=== PATIENT | female | born 1965 | race Two or more races ===

== ENCOUNTER 2021-11-26 13:14 | Inpatient (IN) | payer MEDICAID, OTHER ==
[~2021-11-26] VITALS: Ht 160 cm; Wt 118.0 kg
[2021-11-26] MEDS ORDERED: HYDROcodone-ACET 5/325MG TAB PO ONE (13:45)
[2021-11-26 14:14] LABS: Basophils # (auto) 0.1 10 ^3/uL (0-0.2); Basophils % (auto) 0.7 % (0.0-2.0); Eosinophils # (auto) 0.2 10 ^3/uL (0-0.8); Eosinophils % (auto) 2.7 % (0.0-7.0); Hematocrit 45.4 % (36.0-46.0); Hemoglobin 15.9 g/dL (12.2-16.2); Lymphocytes # (auto) 1.5 10 ^3/uL (0.4-5.4); Lymphocytes % (auto) 17.5 % (10.0-50.0); Mean Corpuscular Hemoglobin 29.6 pg (28.0-32.0); Mean Corpuscular Volume 84.6 fL (80.0-100.0); Monocytes # (auto) 0.6 10 ^3/uL (0-1.3); Monocytes % (auto) 6.7 % (0.0-12.0); Neutrophils # (auto) 6.1 10 ^3/uL (1.6-8.6); Neutrophils % (auto) 72.4 % (37.0-80.0); Nucleated Red Blood Cells % 0.1 %; Red Blood Cells 5.37 10^6/uL (4.0-5.20); Red Cell Distribution Width 12.3 % (11.8-14.3); White Blood Cell 8.5 10^3/uL (4.4-10.8)
[2021-11-26 14:32] LABS: INR 1.01 (0.9-1.15); Partial Thromboplastin Time 22.8 sec (23.6-33.0)
[2021-11-26 14:33] LABS: Alanine Aminotransferase 40 U/L (13-56); Albumin 3.2 g/dL (3.4-5.0); Anion Gap 7 (5-15); Aspartate Aminotransferase 33 U/L (15-37); BUN/Creatinine Ratio 21.7; Blood Urea Nitrogen 15 mg/dL (7-18); Calcium 9.1 mg/dL (8.5-10.1); Carbon Dioxide 25 mmol/L (21-32); Chloride 103 mmol/L (98-107); GFR African American 114 mL/min; GFR Non-African American 94 mL/min; Glucose 246 mg/dL (74-106); Magnesium 2.4 mg/dL (1.6-2.6); Potassium 4.4 mmol/L (3.5-5.1); Sodium 135 mmol/L (136-145)
[2021-11-26 14:38] LABS: Alkaline Phosphatase 88 U/L (45-117); Bilirubin, Total 0.4 mg/dL (0.2-1.0); Total Protein 7.4 g/dL (6.4-8.2)
[2021-11-26] MEDS ORDERED: MECLIZINE HCL 25 MG TAB PO ONE (17:15)
[2021-11-26] MEDS ORDERED: hydrALAZINE HCL 20 MG/ML VL IV PRN (19:15)
[2021-11-26] MEDS ORDERED: ONDANSETRON HCL 4 MG/2 ML VIAL IV PRN (19:15)
[2021-11-26] MEDS ORDERED: DIPHENOXYLATE W/ATROPINE 2.5 MG TAB PO PRN (19:15)
[2021-11-26] MEDS ORDERED: DEXTROSE (50%) 50ML SYRG IV PRN (19:15)
[2021-11-26] MEDS ORDERED: ACETAMINOPHEN 500 MG TAB PO PRN (19:15)
[2021-11-26] MEDS ORDERED: MORPHINE SULFATE INJECTION 2 MG/ML SYRG IV PRN ×2 (19:15)
[2021-11-26] MEDS ORDERED: SODIUM CHLORIDE 0.9% 1,000 ML IV ONE (19:15)
[2021-11-26] MEDS ORDERED: MECLIZINE HCL 25 MG TAB PO PRN (19:15)
[2021-11-26] MEDS ORDERED: NITROGLYCERIN 0.4 MG SL TAB SL PRN (19:15)
[2021-11-26] MEDS: ACCU-CHEK COMFORT CURVE STRIP VI SCH (20:10)
[2021-11-26] MEDS: InsuLIN REG 1unit/0.01ml Soln (100units/ml) SC SCH (20:10)
[2021-11-26] MEDS: SODIUM CHLORIDE 0.9% 1,000 ML IV SCH (22:07)
[2021-11-26 22:28] VITALS: BP 111/60
[2021-11-26 22:48] VITALS: BP 111/60
[2021-11-27] MEDS: ACCU-CHEK COMFORT CURVE STRIP VI SCH ×7 (00:02→23:20)
[2021-11-27] MEDS: InsuLIN REG 1unit/0.01ml Soln (100units/ml) SC SCH ×7 (00:07→23:22)
[2021-11-27 05:00] VITALS: BP 107/65
[2021-11-27 06:05] LABS: Albumin 2.6 g/dL (3.4-5.0); Calcium 8.2 mg/dL (8.5-10.1); Potassium 3.5 mmol/L (3.5-5.1)
[2021-11-27 06:06] LABS: Basophils # (auto) 0 10 ^3/uL (0-0.2); Basophils % (auto) 0.5 % (0.0-2.0); Eosinophils # (auto) 0.2 10 ^3/uL (0-0.8); Eosinophils % (auto) 3.1 % (0.0-7.0); Hematocrit 38.8 % (36.0-46.0); Hemoglobin 13.8 g/dL (12.2-16.2); Lymphocytes # (auto) 2.5 10 ^3/uL (0.4-5.4); Lymphocytes % (auto) 31.6 % (10.0-50.0); Mean Corpuscular Hgb Conc. 35.5 g/dL (32.0-36.0); Mean Corpuscular Volume 84.7 fL (80.0-100.0); Monocytes # (auto) 0.6 10 ^3/uL (0-1.3); Monocytes % (auto) 7.1 % (0.0-12.0); Neutrophils # (auto) 4.6 10 ^3/uL (1.6-8.6); Neutrophils % (auto) 57.7 % (37.0-80.0); Nucleated Red Blood Cells % 0.1 %; Red Blood Cells 4.58 10^6/uL (4.0-5.20)
[2021-11-27 06:09] LABS: BUN/Creatinine Ratio 29.3; Bilirubin, Total 0.4 mg/dL (0.2-1.0); Total Protein 6.1 g/dL (6.4-8.2)
[2021-11-27 09:00] VITALS: BP 101/63
[2021-11-27] MEDS ORDERED: PANTOPRAZOLE 40 MG TAB PO SCH (10:00)
[2021-11-27] MEDS ORDERED: ENOXAPARIN SOD 40 MG/0.4 ML SYRINGE SC SCH (10:00)
[2021-11-27] MEDS ORDERED: LOSA-39 PO (10:44)
[2021-11-27] MEDS ORDERED: ATOR20TA PO (10:44)
[2021-11-27] MEDS ORDERED: CARV25TA55 PO (10:44)
[2021-11-27] MEDS ORDERED: GABA-339 PO (10:44)
[2021-11-27] MEDS ORDERED: AMLO-489 PO (10:44)
[2021-11-27] MEDS: HYDROcodone-ACET 5/325MG TAB PO PRN ×2 (11:23→18:39)
[2021-11-27 13:00] VITALS: BP 109/59
[2021-11-27] MEDS: SODIUM CHLORIDE 0.9% 1,000 ML IV SCH (14:51)
[2021-11-27 17:00] VITALS: BP 108/61
[2021-11-27] MEDS ORDERED: LORazepam 2MG/ML-1ML VIAL IV PRN (19:00)
[2021-11-27 22:00] VITALS: BP 111/59
[2021-11-28] MEDS: ACCU-CHEK COMFORT CURVE STRIP VI SCH ×2 (03:01→08:13)
[2021-11-28] MEDS: InsuLIN REG 1unit/0.01ml Soln (100units/ml) SC SCH ×2 (03:02→08:14)
[2021-11-28 05:00] VITALS: BP 117/56
[2021-11-28] MEDS: SODIUM CHLORIDE 0.9% 1,000 ML IV SCH (06:30)
[2021-11-28] MEDS: HYDROcodone-ACET 5/325MG TAB PO PRN (06:39)
[2021-11-28 08:15] VITALS: BP 139/75
== END 2021-11-28 10:55 | disposition left against medical advice (07) | DRG 422 ==
LOC: ER 13:14 → TELE 19:03 → TELE-CENTR 21:04
PROVIDERS: ADMIT Family Medicine; ATTEND Internal Medicine
DX: E86.0 Dehydration (principal); E87.3 Alkalosis; I50.9 Heart failure, unspecified; I11.0 Hypertensive heart disease with heart failure; E87.1 Hypo-osmolality and hyponatremia; E87.6 Hypokalemia; E66.01 Morbid (severe) obesity due to excess calories; E11.65 Type 2 diabetes mellitus with hyperglycemia; G89.29 Other chronic pain; Z53.29 Procedure and treatment not carried out because of patient's decision for other reasons; G47.33 Obstructive sleep apnea (adult) (pediatric); Z20.822 Contact with and (suspected) exposure to COVID-19; E78.5 Hyperlipidemia, unspecified; F12.90 Cannabis use, unspecified, uncomplicated; F17.200 Nicotine dependence, unspecified, uncomplicated; Z79.4 Long term (current) use of insulin; Z79.891 Long term (current) use of opiate analgesic; Z83.3 Family history of diabetes mellitus; Z68.42 Body mass index [BMI] 45.0-49.9, adult; Z88.8 Allergy status to other drugs, medicaments and biological substances
CPT/HCPCS: 36415; 36600; 70450; 71045; 72100; 72170; 72220; 80053; 82805; 82962; 83036; 83735; 83880; 84443; 84484; 85025; 85610; 85730; 93886; 96360; G0378; J1815

== ENCOUNTER 2022-08-27 04:25 | Inpatient (IN) | payer MEDICAID ==
[~2022-08-27] VITALS: Ht 160 cm; Wt 54.5 kg
[~2022-08-27 04:25] MED LIST: AMLO-489 PO; ATOR20TA PO; CARV25TA55 PO; GABA-339 PO; LOSA-39 PO
[2022-08-27] MEDS ORDERED: SODIUM CHLORIDE 0.9% 1,000 ML IV ONE (05:30)
[2022-08-27 06:24] LABS: Basophils # (auto) 0 10 ^3/uL (0-0.2); Basophils % (auto) 0.2 % (0.0-2.0); Eosinophils # (auto) 0.1 10 ^3/uL (0-0.8); Eosinophils % (auto) 0.2 % (0.0-7.0); Hematocrit 30.2 % (36.0-46.0); Hemoglobin 10.2 g/dL (12.2-16.2); Lymphocytes # (auto) 1.2 10 ^3/uL (0.4-5.4); Lymphocytes % (auto) 4.1 % (10.0-50.0); Mean Corpuscular Hemoglobin 26.7 pg (28.0-32.0); Mean Corpuscular Hgb Conc. 33.7 g/dL (32.0-36.0); Mean Corpuscular Volume 79.3 fL (80.0-100.0); Monocytes % (auto) 3.4 % (0.0-12.0); Neutrophils # (auto) 27.6 10 ^3/uL (1.6-8.6); Neutrophils % (auto) 92.1 % (37.0-80.0); Red Blood Cells 3.81 10^6/uL (4.0-5.20); Red Cell Distribution Width 12.3 % (11.8-14.3)
[2022-08-27 06:28] LABS: Albumin 1.9 g/dL (3.4-5.0); Anion Gap 15 (5-15); Blood Urea Nitrogen 37 mg/dL (7-18); Calcium 8.6 mg/dL (8.5-10.1); Carbon Dioxide 20 mmol/L (21-32); Chloride 96 mmol/L (98-107); Glucose 305 mg/dL (74-106); Magnesium 1.7 mg/dL (1.6-2.6); Sodium 131 mmol/L (136-145)
[2022-08-27 06:30] LABS: Alanine Aminotransferase 7 U/L (13-56); Aspartate Aminotransferase 11 U/L (15-37); BUN/Creatinine Ratio 19.5; GFR African American 35 mL/min; GFR Non-African American 29 mL/min
[2022-08-27 06:32] LABS: Alkaline Phosphatase 99 U/L (45-117); Bilirubin, Total 0.8 mg/dL (0.2-1.0); Total Protein 7.4 g/dL (6.4-8.2)
[2022-08-27 06:50] LABS: Potassium 2.3 mmol/L (3.5-5.1)
[2022-08-27] MEDS ORDERED: POTASSIUM EFFERVESENT TAB 25 MEQ PO ONE ×2 (07:00→20:15)
[2022-08-27] MEDS ORDERED: PIPERACILLIN-TAZO 4.5GM 100 ML IV ONE (07:15)
[2022-08-27] MEDS ORDERED: SODIUM CHLORIDE 0.9% 1,000 ML IVB ONE (07:15)
[2022-08-27 07:43] LABS: INR 1.21 (0.9-1.15); Partial Thromboplastin Time 29.6 sec (24.6-33.4)
[2022-08-27] MEDS ORDERED: metroNIDAZOLE 500MG/100ML 100 ML IV ONE (07:45)
[2022-08-27 08:00] LABS: Lactic Acid w/Reflex 2.1 mmol/L (0.4-2.0)
[2022-08-27] MEDS: NOREPINEPHRINE 8 MG/250ML KIT 250 ML IV SCH (09:25)
[2022-08-27 12:27] LABS: Lactic Acid w/Reflex 2.3 mmol/L (0.4-2.0)
[2022-08-27] MEDS ORDERED: InsuLIN REG 1unit/0.01ml Soln (100units/ml) IV ONE (13:15)
[2022-08-27] MEDS ORDERED: SODIUM CHLORIDE 0.9% 1,000 ML IV SCH (13:15)
[2022-08-27 14:01] LABS: Urine Bacteria NONE SEEN /hpf (None Seen); Urine Blood TRACE /uL (Negative); Urine Budding Yeast MANY /hpf (None Seen); Urine Hyaline Cast FEW /lpf (0 - 2); Urine Specific Gravity 1.017 (1.001-1.035); Urine WBC 254 /hpf (0 - 5)
[2022-08-27] MEDS ORDERED: MORPHINE SULFATE INJ 2 MG/ml SYRG IV PRN (15:30)
[2022-08-27] MEDS ORDERED: NITROGLYCERIN 0.4 MG SL TAB SL PRN (15:30)
[2022-08-27] MEDS ORDERED: VANCOMYCIN PER PHARMACY 0 MG IV SCH (15:30)
[2022-08-27] MEDS ORDERED: MAGNESIUM SULFATE 1GM/100ML 100 ML IV ONE (15:30)
[2022-08-27] MEDS ORDERED: BACL10TA PO (15:35)
[2022-08-27] MEDS ORDERED: DEXTROSE (50%) 50ML SYRG IV PRN (15:45)
[2022-08-27] MEDS ORDERED: VANCOMYCIN 1GM/250ML 250 ML IV ONE (16:00)
[2022-08-27] MEDS: SODIUM CHLORIDE 0.9% 1,000 ML IV SCH (17:20)
[2022-08-27] MEDS: PIPERACILLIN-TAZOB 3.375GM 100 ML IV SCH (17:21)
[2022-08-27] MEDS: ACCU-CHEK COMFORT CURVE STRIP VI SCH ×2 (17:25→23:13)
[2022-08-27] MEDS: ACETAMINOPHEN 325 MG TAB PO PRN (17:28)
[2022-08-27] MEDS: InsuLIN REG 1unit/0.01ml Soln (100units/ml) SC SCH ×2 (17:28→23:19)
[2022-08-27] MEDS: HYDROcodone-ACET 5/325MG TAB PO PRN ×2 (17:35→23:08)
[2022-08-27 18:11] LABS: Cholesterol 85 mg/dL (< 200); HDL Cholesterol 13 mg/dL (40-59); LDL Cholesterol 57 mg/dL (< 100); Triglycerides 118 mg/dL (< 150)
[2022-08-27 19:45] LABS: BUN/Creatinine Ratio 25.7; Calcium 7.8 mg/dL (8.5-10.1)
[2022-08-27 20:03] LABS: Potassium 2.8 mmol/L (3.5-5.1)
[2022-08-27] MEDS: POTASSIUM CHL 20MEQ/100ML 100 ML IV SCH ×2 (20:43→23:06)
[2022-08-27] MEDS: GABAPENTIN 300 MG CAP PO SCH (23:18)
[2022-08-28] VITALS (56 sets, daily range): BP systolic 75–147; BP diastolic 24–64
[2022-08-28] MEDS: DAKINS QUARTER STR 0.125% (NaHypochlorite) 473 ML TOPICAL SOL TOP SCH ×3 (00:11→22:00)
[2022-08-28] MEDS: PIPERACILLIN-TAZOB 3.375GM 100 ML IV SCH (00:14)
[2022-08-28 02:41] LABS: BUN/Creatinine Ratio 29.1; Calcium 8.2 mg/dL (8.5-10.1)
[2022-08-28] MEDS: MORPHINE SULFATE INJ 2 MG/ml SYRG IV PRN ×2 (03:22→22:45)
[2022-08-28] MEDS: SODIUM CHLORIDE 0.9% 1,000 ML IV SCH (04:58)
[2022-08-28] MEDS: GABAPENTIN 300 MG CAP PO SCH ×3 (06:21→22:00)
[2022-08-28] MEDS: ACCU-CHEK COMFORT CURVE STRIP VI SCH ×4 (06:32→21:52)
[2022-08-28] MEDS: InsuLIN REG 1unit/0.01ml Soln (100units/ml) SC SCH ×4 (06:33→22:00)
[2022-08-28] MEDS: NOREPINEPHRINE 8 MG/250ML KIT 250 ML IV SCH (09:13)
[2022-08-28] MEDS ORDERED: ATORVASTATIN 20 MG TAB PO SCH (10:00)
[2022-08-28] MEDS: PANTOPRAZOLE 40 MG TAB PO SCH (11:05)
[2022-08-28] MEDS: ENOXAPARIN SOD 40 MG/0.4 ML SYRINGE SC SCH (11:05)
[2022-08-28] MEDS: MEROPENEM 1GM IVPB 100 ML IV SCH ×2 (11:05→18:13)
[2022-08-28] MEDS ORDERED: LIDOCAINE 1% (LOCAL ANESTH.) PF 5ml SDV ID ONE (13:30)
[2022-08-28] MEDS: VANCOMYCIN 1GM/250ML 250 ML IV SCH ×2 (13:51→22:00)
[2022-08-28 14:01] LABS: Alanine Aminotransferase 7 U/L (13-56); Albumin 1.4 g/dL (3.4-5.0); Anion Gap 10 (5-15); Aspartate Aminotransferase 11 U/L (15-37); BUN/Creatinine Ratio 31.5; Blood Urea Nitrogen 28 mg/dL (7-18); Calcium 8.1 mg/dL (8.5-10.1); Carbon Dioxide 21 mmol/L (21-32); Chloride 102 mmol/L (98-107); GFR African American 85 mL/min; GFR Non-African American 70 mL/min; Glucose 346 mg/dL (74-106); Sodium 133 mmol/L (136-145)
[2022-08-28 14:04] LABS: Alkaline Phosphatase 108 U/L (45-117); Bilirubin, Total 0.6 mg/dL (0.2-1.0); Total Protein 6.6 g/dL (6.4-8.2)
[2022-08-28 14:27] LABS: Potassium 2.8 mmol/L (3.5-5.1)
[2022-08-28] MEDS ORDERED: POTASSIUM EFFERVESENT TAB 25 MEQ PO ONE (14:30)
[2022-08-28] MEDS: SOD CHL 0.9%/ KCL 40MEQ 1,000 ML IV SCH (15:24)
[2022-08-28 15:37] LABS: Hematocrit 28.6 % (36.0-46.0); Hemoglobin 9.5 g/dL (12.2-16.2); Mean Corpuscular Hemoglobin 26.9 pg (28.0-32.0); Mean Corpuscular Hgb Conc. 33.3 g/dL (32.0-36.0); Mean Corpuscular Volume 80.7 fL (80.0-100.0); Red Blood Cells 3.55 10^6/uL (4.0-5.20); Red Cell Distribution Width 12.4 % (11.8-14.3); White Blood Cell 25.2 10^3/uL (4.4-10.8)
[2022-08-28 15:38] LABS: Basophils % (manual) 0 (0.0-2.0); Blast Cells 0; Eosinophils % (manual) 0 (0-7); Metamyelocytes % 0; Myelocytes % 0; Promyelocytes % 0; Reactive Lymphocytes 0
[2022-08-28 16:45] LABS: Band Neutrophils % (manual) 32; Lymphocytes % (manual) 4 (10.0-50.0); Monocytes % (manual) 1 (0-12)
[2022-08-28] MEDS: HYDROcodone-ACET 5/325MG TAB PO PRN (17:20)
[2022-08-28] MEDS: SODIUM CHLOR 0.9% PF (SALINE LOCK) 10ML VIAL/SYR IV SCH (21:52)
[2022-08-29] VITALS (91 sets, daily range): BP systolic 75–136; BP diastolic 33–97
[2022-08-29] MEDS: MEROPENEM 1GM IVPB 100 ML IV SCH ×3 (03:00→19:30)
[2022-08-29] MEDS: SOD CHL 0.9%/ KCL 40MEQ 1,000 ML IV SCH ×2 (03:50→16:07)
[2022-08-29 04:14] LABS: Basophils # (auto) 0 10 ^3/uL (0-0.2); Basophils % (auto) 0.2 % (0.0-2.0); Eosinophils # (auto) 0.1 10 ^3/uL (0-0.8); Monocytes # (auto) 0.4 10 ^3/uL (0-1.3)
[2022-08-29 04:15] LABS: Eosinophils % (auto) 0.4 % (0.0-7.0); Hematocrit 26.6 % (36.0-46.0); Hemoglobin 9.1 g/dL (12.2-16.2); Lymphocytes # (auto) 0.7 10 ^3/uL (0.4-5.4); Lymphocytes % (auto) 4.6 % (10.0-50.0); Mean Corpuscular Hemoglobin 27.2 pg (28.0-32.0); Mean Corpuscular Hgb Conc. 34.1 g/dL (32.0-36.0); Mean Corpuscular Volume 79.8 fL (80.0-100.0); Monocytes % (auto) 2.5 % (0.0-12.0); Neutrophils # (auto) 15.1 10 ^3/uL (1.6-8.6); Neutrophils % (auto) 92.3 % (37.0-80.0); Red Blood Cells 3.33 10^6/uL (4.0-5.20); Red Cell Distribution Width 12.5 % (11.8-14.3); White Blood Cell 16.3 10^3/uL (4.4-10.8)
[2022-08-29 04:29] LABS: Albumin 1.3 g/dL (3.4-5.0); BUN/Creatinine Ratio 35.6; Potassium 3.4 mmol/L (3.5-5.1)
[2022-08-29 04:31] LABS: Bilirubin, Total 0.4 mg/dL (0.2-1.0); Total Protein 5.4 g/dL (6.4-8.2)
[2022-08-29] MEDS: NOREPINEPHRINE 8 MG/250ML KIT 250 ML IV SCH (04:40)
[2022-08-29] MEDS: HYDROcodone-ACET 5/325MG TAB PO PRN ×2 (04:48→19:51)
[2022-08-29] MEDS: GABAPENTIN 300 MG CAP PO SCH ×3 (06:17→22:03)
[2022-08-29] MEDS: ACCU-CHEK COMFORT CURVE STRIP VI SCH ×4 (06:17→21:46)
[2022-08-29] MEDS: VANCOMYCIN 1GM/250ML 250 ML IV SCH (06:17)
[2022-08-29] MEDS: InsuLIN REG 1unit/0.01ml Soln (100units/ml) SC SCH ×4 (06:17→22:03)
[2022-08-29] MEDS: PANTOPRAZOLE 40 MG TAB PO SCH (09:39)
[2022-08-29] MEDS: ENOXAPARIN SOD 40 MG/0.4 ML SYRINGE SC SCH (09:40)
[2022-08-29] MEDS: DAKINS QUARTER STR 0.125% (NaHypochlorite) 473 ML TOPICAL SOL TOP SCH ×2 (09:41→21:43)
[2022-08-29] MEDS: SODIUM CHLOR 0.9% PF (SALINE LOCK) 10ML VIAL/SYR IV SCH ×2 (09:41→21:43)
[2022-08-29] MEDS: MORPHINE SULFATE INJ 2 MG/ml SYRG IV PRN ×2 (10:23→23:06)
[2022-08-29] MEDS ORDERED: SODIUM CHLORIDE 0.9% 500 ML IV ONE (12:00)
[2022-08-29] MEDS ORDERED: INSULIN NPH Isophane (HUMAN) 1unit/0.01ml Susp(100units/ml) SC ONE (12:00)
[2022-08-29] MEDS ORDERED: DEXTROSE (50%) 50ML SYRG IV PRN (16:00)
[2022-08-29] MEDS: ATORVASTATIN 20 MG TAB PO SCH (22:03)
[2022-08-30] VITALS (69 sets, daily range): BP systolic 73–124; BP diastolic 33–68
[2022-08-30] MEDS ORDERED: VANCOMYCIN 1GM/250ML 250 ML IV ONE (02:00)
[2022-08-30] MEDS: MEROPENEM 1GM IVPB 100 ML IV SCH ×3 (03:00→19:13)
[2022-08-30 04:24] LABS: Basophils # (auto) 0 10 ^3/uL (0-0.2); Eosinophils # (auto) 0.1 10 ^3/uL (0-0.8); Eosinophils % (auto) 0.6 % (0.0-7.0); Monocytes # (auto) 0.5 10 ^3/uL (0-1.3); Neutrophils % (auto) 86.8 % (37.0-80.0)
[2022-08-30 04:29] LABS: Basophils % (auto) 0.2 % (0.0-2.0); Hematocrit 25.7 % (36.0-46.0); Hemoglobin 8.7 g/dL (12.2-16.2); Lymphocytes # (auto) 1.1 10 ^3/uL (0.4-5.4); Lymphocytes % (auto) 8.5 % (10.0-50.0); Mean Corpuscular Hemoglobin 26.9 pg (28.0-32.0); Mean Corpuscular Hgb Conc. 33.6 g/dL (32.0-36.0); Monocytes % (auto) 3.9 % (0.0-12.0); Neutrophils # (auto) 11.3 10 ^3/uL (1.6-8.6); Nucleated Red Blood Cells % 0.1 %; Red Blood Cells 3.22 10^6/uL (4.0-5.20); Red Cell Distribution Width 12.6 % (11.8-14.3)
[2022-08-30 04:31] LABS: Albumin 1.1 g/dL (3.4-5.0); Anion Gap 3 (5-15); Blood Urea Nitrogen 18 mg/dL (7-18); Calcium 7.7 mg/dL (8.5-10.1); Carbon Dioxide 23 mmol/L (21-32); Chloride 108 mmol/L (98-107); Glucose 198 mg/dL (74-106); Potassium 3.6 mmol/L (3.5-5.1); Sodium 134 mmol/L (136-145)
[2022-08-30 04:37] LABS: Alanine Aminotransferase < 6 U/L (13-56); Alkaline Phosphatase 97 U/L (45-117); Aspartate Aminotransferase 6 U/L (15-37); BUN/Creatinine Ratio 30.5; Bilirubin, Total 0.3 mg/dL (0.2-1.0); GFR African American 136 mL/min; GFR Non-African American 112 mL/min; Total Protein 5.7 g/dL (6.4-8.2)
[2022-08-30] MEDS: GABAPENTIN 300 MG CAP PO SCH ×3 (06:22→21:44)
[2022-08-30] MEDS: HYDROcodone-ACET 5/325MG TAB PO PRN ×2 (06:27→16:07)
[2022-08-30] MEDS: SOD CHL 0.9%/ KCL 40MEQ 1,000 ML IV SCH ×2 (06:30→20:59)
[2022-08-30] MEDS: INSULIN LANTUS (GLARGINE) 1 /0.01ml (100units/ml) SC SCH (06:33)
[2022-08-30] MEDS: InsuLIN REG 1unit/0.01ml Soln (100units/ml) SC SCH ×4 (06:33→22:17)
[2022-08-30] MEDS: ACCU-CHEK COMFORT CURVE STRIP VI SCH ×4 (06:41→22:07)
[2022-08-30] MEDS: NOREPINEPHRINE 8 MG/250ML KIT 250 ML IV SCH (08:19)
[2022-08-30] MEDS: SODIUM CHLOR 0.9% PF (SALINE LOCK) 10ML VIAL/SYR IV SCH ×2 (09:35→21:44)
[2022-08-30] MEDS: DAKINS QUARTER STR 0.125% (NaHypochlorite) 473 ML TOPICAL SOL TOP SCH ×2 (09:35→22:00)
[2022-08-30] MEDS: PANTOPRAZOLE 40 MG TAB PO SCH (10:04)
[2022-08-30] MEDS: ENOXAPARIN SOD 40 MG/0.4 ML SYRINGE SC SCH (10:04)
[2022-08-30] MEDS: VANCOMYCIN 1GM/250ML 250 ML IV SCH (17:52)
[2022-08-30] MEDS: MORPHINE SULFATE INJ 2 MG/ml SYRG IV PRN ×2 (18:18→21:44)
[2022-08-30] MEDS: ATORVASTATIN 20 MG TAB PO SCH (21:44)
[2022-08-31] VITALS (89 sets, daily range): BP systolic 78–141; BP diastolic 22–69
[2022-08-31] MEDS: MORPHINE SULFATE INJ 2 MG/ml SYRG IV PRN ×4 (02:26→23:58)
[2022-08-31] MEDS: MEROPENEM 1GM IVPB 100 ML IV SCH ×3 (03:13→17:45)
[2022-08-31 04:06] LABS: Basophils # (auto) 0 10 ^3/uL (0-0.2); Basophils % (auto) 0.2 % (0.0-2.0); Eosinophils # (auto) 0.1 10 ^3/uL (0-0.8); Eosinophils % (auto) 0.7 % (0.0-7.0); Lymphocytes # (auto) 1.2 10 ^3/uL (0.4-5.4); Neutrophils % (auto) 85.4 % (37.0-80.0); Red Blood Cells 2.84 10^6/uL (4.0-5.20)
[2022-08-31 04:11] LABS: Hematocrit 23.1 % (36.0-46.0); Hemoglobin 7.7 g/dL (12.2-16.2); Lymphocytes % (auto) 9.4 % (10.0-50.0); Mean Corpuscular Hemoglobin 27.2 pg (28.0-32.0); Mean Corpuscular Hgb Conc. 33.4 g/dL (32.0-36.0); Mean Corpuscular Volume 81.4 fL (80.0-100.0); Monocytes # (auto) 0.5 10 ^3/uL (0-1.3); Monocytes % (auto) 4.3 % (0.0-12.0); Neutrophils # (auto) 10.5 10 ^3/uL (1.6-8.6); Red Cell Distribution Width 12.7 % (11.8-14.3); White Blood Cell 12.3 10^3/uL (4.4-10.8)
[2022-08-31 04:22] LABS: Calcium 7.8 mg/dL (8.5-10.1); Potassium 4.3 mmol/L (3.5-5.1)
[2022-08-31 04:24] LABS: BUN/Creatinine Ratio 29.2
[2022-08-31 04:27] LABS: Bilirubin, Total 0.3 mg/dL (0.2-1.0); Total Protein 5.6 g/dL (6.4-8.2)
[2022-08-31] MEDS: HYDROcodone-ACET 5/325MG TAB PO PRN ×3 (05:01→21:43)
[2022-08-31] MEDS: GABAPENTIN 300 MG CAP PO SCH ×3 (06:28→21:42)
[2022-08-31] MEDS: InsuLIN REG 1unit/0.01ml Soln (100units/ml) SC SCH ×4 (06:28→21:52)
[2022-08-31] MEDS: ACCU-CHEK COMFORT CURVE STRIP VI SCH ×4 (06:28→21:53)
[2022-08-31] MEDS: INSULIN LANTUS (GLARGINE) 1 /0.01ml (100units/ml) SC SCH (06:37)
[2022-08-31] MEDS: NOREPINEPHRINE 8 MG/250ML KIT 250 ML IV SCH (07:00)
[2022-08-31] MEDS: SOD CHL 0.9%/ KCL 40MEQ 1,000 ML IV SCH (07:42)
[2022-08-31] MEDS: DAKINS QUARTER STR 0.125% (NaHypochlorite) 473 ML TOPICAL SOL TOP SCH ×2 (09:58→21:52)
[2022-08-31] MEDS: PANTOPRAZOLE 40 MG TAB PO SCH (09:58)
[2022-08-31] MEDS: SODIUM CHLOR 0.9% PF (SALINE LOCK) 10ML VIAL/SYR IV SCH ×2 (09:58→21:52)
[2022-08-31] MEDS: VANCOMYCIN 1GM/250ML 250 ML IV SCH (09:58)
[2022-08-31] MEDS: ENOXAPARIN SOD 40 MG/0.4 ML SYRINGE SC SCH (09:58)
[2022-08-31] MEDS ORDERED: MIDODRINE HCL 10 MG TAB PO ONE (11:00)
[2022-08-31] MEDS: SODIUM CHLORIDE 0.9% 1,000 ML IV SCH (11:17)
[2022-08-31] MEDS ORDERED: MIDODRINE HCL 10 MG TAB PO SCH (12:00)
[2022-08-31] MEDS ORDERED: ONDANSETRON HCL 4 MG/2 ML VIAL ONE (16:56)
[2022-08-31] MEDS: MIDODRINE HCL 10 MG TAB PO SCH (17:05)
[2022-08-31] MEDS: ONDANSETRON HCL 4 MG/2 ML VIAL IV PRN ×2 (17:06→21:43)
[2022-08-31] MEDS: ATORVASTATIN 20 MG TAB PO SCH (21:42)
[2022-09-01] VITALS (92 sets, daily range): BP systolic 86–160; BP diastolic 35–92
[2022-09-01] MEDS: VANCOMYCIN 1GM/250ML 250 ML IV SCH ×2 (01:00→20:20)
[2022-09-01] MEDS: MEROPENEM 1GM IVPB 100 ML IV SCH ×3 (03:41→20:20)
[2022-09-01] MEDS: MORPHINE SULFATE INJ 2 MG/ml SYRG IV PRN ×5 (03:56→21:40)
[2022-09-01 05:04] LABS: Hemoglobin 8.7 g/dL (12.2-16.2)
[2022-09-01 05:06] LABS: Hematocrit 27.4 % (36.0-46.0); Mean Corpuscular Hemoglobin 26.2 pg (28.0-32.0); Mean Corpuscular Hgb Conc. 31.9 g/dL (32.0-36.0); Red Blood Cells 3.34 10^6/uL (4.0-5.20); Red Cell Distribution Width 12.8 % (11.8-14.3); White Blood Cell 13.1 10^3/uL (4.4-10.8)
[2022-09-01 05:22] LABS: Albumin 1.1 g/dL (3.4-5.0); Anion Gap 6 (5-15); Blood Urea Nitrogen 11 mg/dL (7-18); Calcium 7.6 mg/dL (8.5-10.1); Carbon Dioxide 21 mmol/L (21-32); Chloride 107 mmol/L (98-107); Glucose 146 mg/dL (74-106); Potassium 4.5 mmol/L (3.5-5.1); Sodium 134 mmol/L (136-145)
[2022-09-01 05:27] LABS: Alanine Aminotransferase < 6 U/L (13-56); Alkaline Phosphatase 121 U/L (45-117); Aspartate Aminotransferase 22 U/L (15-37); BUN/Creatinine Ratio 26.2; Bilirubin, Total 0.3 mg/dL (0.2-1.0); GFR African American 201 mL/min; GFR Non-African American 166 mL/min; Total Protein 5.3 g/dL (6.4-8.2)
[2022-09-01 05:44] LABS: Basophils % (manual) 0 (0.0-2.0); Blast Cells 0; Metamyelocytes % 0; Myelocytes % 0; Promyelocytes % 0; Reactive Lymphocytes 0
[2022-09-01] MEDS: MIDODRINE HCL 10 MG TAB PO SCH ×3 (06:22→18:14)
[2022-09-01] MEDS: GABAPENTIN 300 MG CAP PO SCH ×3 (06:23→21:39)
[2022-09-01] MEDS: InsuLIN REG 1unit/0.01ml Soln (100units/ml) SC SCH ×4 (06:24→21:51)
[2022-09-01] MEDS: INSULIN LANTUS (GLARGINE) 1 /0.01ml (100units/ml) SC SCH (06:25)
[2022-09-01] MEDS: ACCU-CHEK COMFORT CURVE STRIP VI SCH ×4 (06:26→21:52)
[2022-09-01 06:56] LABS: Band Neutrophils % (manual) 4; Eosinophils % (manual) 2 (0-7); Lymphocytes % (manual) 15 (10.0-50.0); Monocytes % (manual) 4 (0-12)
[2022-09-01] MEDS: SODIUM CHLORIDE 0.9% 1,000 ML IV SCH ×3 (07:26→18:15)
[2022-09-01] MEDS: NOREPINEPHRINE 8 MG/250ML KIT 250 ML IV SCH (08:45)
[2022-09-01] MEDS: SODIUM CHLOR 0.9% PF (SALINE LOCK) 10ML VIAL/SYR IV SCH ×2 (11:11→21:41)
[2022-09-01] MEDS: ENOXAPARIN SOD 40 MG/0.4 ML SYRINGE SC SCH (11:14)
[2022-09-01] MEDS: PANTOPRAZOLE 40 MG TAB PO SCH (11:14)
[2022-09-01] MEDS: DAKINS QUARTER STR 0.125% (NaHypochlorite) 473 ML TOPICAL SOL TOP SCH ×2 (11:15→21:52)
[2022-09-01] MEDS: HYDROcodone-ACET 5/325MG TAB PO PRN (16:11)
[2022-09-01] MEDS ORDERED: CLINDAMYCIN 900MG IV 50 ML IV ONE (17:15)
[2022-09-01] MEDS: CLINDAMYCIN 900MG IV 50 ML IV SCH (21:40)
[2022-09-01] MEDS: ATORVASTATIN 20 MG TAB PO SCH (21:41)
[2022-09-02] VITALS (60 sets, daily range): BP systolic 83–153; BP diastolic 41–77
[2022-09-02] MEDS: NOREPINEPHRINE 8 MG/250ML KIT 250 ML IV SCH (00:58)
[2022-09-02] MEDS: SODIUM CHLORIDE 0.9% 1,000 ML IV SCH (00:59)
[2022-09-02] MEDS: MORPHINE SULFATE INJ 2 MG/ml SYRG IV PRN ×2 (03:27→20:29)
[2022-09-02] MEDS: MEROPENEM 1GM IVPB 100 ML IV SCH ×3 (03:27→19:49)
[2022-09-02 05:07] LABS: Basophils # (auto) 0 10 ^3/uL (0-0.2); Basophils % (auto) 0.2 % (0.0-2.0); Eosinophils # (auto) 0 10 ^3/uL (0-0.8); Eosinophils % (auto) 0.3 % (0.0-7.0); Hematocrit 25.4 % (36.0-46.0); Hemoglobin 8.6 g/dL (12.2-16.2); Lymphocytes # (auto) 1.1 10 ^3/uL (0.4-5.4); Lymphocytes % (auto) 7.3 % (10.0-50.0); Mean Corpuscular Hemoglobin 27.1 pg (28.0-32.0); Mean Corpuscular Volume 79.8 fL (80.0-100.0); Monocytes # (auto) 0.6 10 ^3/uL (0-1.3); Monocytes % (auto) 3.9 % (0.0-12.0); Neutrophils # (auto) 13.9 10 ^3/uL (1.6-8.6); Neutrophils % (auto) 88.3 % (37.0-80.0); Red Blood Cells 3.18 10^6/uL (4.0-5.20); Red Cell Distribution Width 12.7 % (11.8-14.3); White Blood Cell 15.7 10^3/uL (4.4-10.8)
[2022-09-02 05:20] LABS: INR 1.35 (0.9-1.15); Partial Thromboplastin Time 38.4 sec (24.6-33.4)
[2022-09-02 05:33] LABS: Anion Gap 6 (5-15); Blood Urea Nitrogen 8 mg/dL (7-18); Calcium 7.3 mg/dL (8.5-10.1); Carbon Dioxide 24 mmol/L (21-32); Chloride 101 mmol/L (98-107); Glucose 142 mg/dL (74-106); Potassium 4.1 mmol/L (3.5-5.1); Sodium 131 mmol/L (136-145)
[2022-09-02 05:35] LABS: Alanine Aminotransferase < 6 U/L (13-56); Aspartate Aminotransferase 16 U/L (15-37); GFR African American 213 mL/min; GFR Non-African American 176 mL/min
[2022-09-02 05:38] LABS: Alkaline Phosphatase 114 U/L (45-117); Bilirubin, Total 0.4 mg/dL (0.2-1.0); Total Protein 5.3 g/dL (6.4-8.2)
[2022-09-02] MEDS: GABAPENTIN 300 MG CAP PO SCH (06:00)
[2022-09-02] MEDS: MIDODRINE HCL 10 MG TAB PO SCH (06:54)
[2022-09-02] MEDS: CLINDAMYCIN 900MG IV 50 ML IV SCH ×3 (06:54→22:20)
[2022-09-02] MEDS: InsuLIN REG 1unit/0.01ml Soln (100units/ml) SC SCH ×4 (06:56→22:29)
[2022-09-02] MEDS: ACCU-CHEK COMFORT CURVE STRIP VI SCH ×4 (06:57→22:23)
[2022-09-02] MEDS: INSULIN LANTUS (GLARGINE) 1 /0.01ml (100units/ml) SC SCH (06:57)
[2022-09-02] MEDS: ceFAZolin 1GM VL ONE ×2 (09:38→10:30)
[2022-09-02] MEDS: VANCOMYCIN HCL 1000 MG VL ONE ×2 (09:38→10:45)
[2022-09-02] MEDS ORDERED: PROPOFOL 10 MG/ML 20 ML IV ONE (09:45)
[2022-09-02] MEDS ORDERED: MIDAZOLAM HCL 2MG/2ML 2ml VIAL (1mg/ml) ONE (09:53)
[2022-09-02] MEDS: SODIUM CHLOR 0.9% PF (SALINE LOCK) 10ML VIAL/SYR IV SCH ×2 (10:00→22:20)
[2022-09-02] MEDS: PANTOPRAZOLE 40 MG TAB PO SCH (10:00)
[2022-09-02] MEDS: DAKINS QUARTER STR 0.125% (NaHypochlorite) 473 ML TOPICAL SOL TOP SCH (10:00)
[2022-09-02] MEDS: VANCOMYCIN 1GM/250ML 250 ML IV SCH ×2 (10:00→16:58)
[2022-09-02] MEDS ORDERED: HYDROmorphone HCL 2 MG/ML VL/or syr IV PRN (10:00)
[2022-09-02] MEDS: ENOXAPARIN SOD 40 MG/0.4 ML SYRINGE SC SCH (10:00)
[2022-09-02] MEDS ORDERED: ONDANSETRON HCL 4 MG/2 ML VIAL ONE (10:08)
[2022-09-02] MEDS ORDERED: ePHEDrine SULFATE 50 MG/ML AMP ONE (10:08)
[2022-09-02] MEDS ORDERED: DexAMETHasone SOD PHOS 10MG/1ML VIAL INJ ONE (10:08)
[2022-09-02] MEDS ORDERED: CHLORHEXIDINE 4% TOPICAL soln 118ml TOP ONE (10:14)
[2022-09-02] MEDS ORDERED: fentaNYL CITRATE 100 MCG/2 ML VL ONE (10:14)
[2022-09-02] MEDS ORDERED: ROCURONIUM 10MG/ML 10ML VIAL IV ONE (10:33)
[2022-09-02] MEDS ORDERED: fentaNYL Drip 2500mCg/250mlNS 250 ML IV SCH ×2 (11:30→11:45)
[2022-09-02] MEDS ORDERED: fentaNYL Drip 2500mCg/250mlNS 250 ML IV ONE (11:43)
[2022-09-02] MEDS: SODIUM BICARBONATE 50ML VIAL 50 ML in SOD CHL 0.45% 1,000 ML IV SCH ×2 (12:46→22:30)
[2022-09-02] MEDS ORDERED: MORPHINE SULFATE 4 MG/ML SYR/VIAL IV PRN (15:45)
[2022-09-02] MEDS: FLORASTOR (S. BOULARDII) 250 MG CAP PO SCH (22:21)
[2022-09-03] VITALS (81 sets, daily range): BP systolic 80–130; BP diastolic 29–93
[2022-09-03] MEDS: MEROPENEM 1GM IVPB 100 ML IV SCH ×3 (02:35→18:11)
[2022-09-03 04:22] LABS: White Blood Cell 8.5 10^3/uL (4.4-10.8)
[2022-09-03 04:25] LABS: Basophils # (auto) 0 10 ^3/uL (0-0.2); Basophils % (auto) 0.1 % (0.0-2.0); Eosinophils # (auto) 0 10 ^3/uL (0-0.8); Hematocrit 24.7 % (36.0-46.0); Hemoglobin 8.3 g/dL (12.2-16.2); Lymphocytes # (auto) 0.8 10 ^3/uL (0.4-5.4); Lymphocytes % (auto) 9.4 % (10.0-50.0); Mean Corpuscular Hemoglobin 26.8 pg (28.0-32.0); Mean Corpuscular Hgb Conc. 33.4 g/dL (32.0-36.0); Mean Corpuscular Volume 80.2 fL (80.0-100.0); Monocytes # (auto) 0.3 10 ^3/uL (0-1.3); Monocytes % (auto) 3.2 % (0.0-12.0); Neutrophils # (auto) 7.4 10 ^3/uL (1.6-8.6); Neutrophils % (auto) 87.3 % (37.0-80.0); Red Blood Cells 3.08 10^6/uL (4.0-5.20); Red Cell Distribution Width 12.5 % (11.8-14.3)
[2022-09-03 04:50] LABS: Chloride 100 mmol/L (98-107); Potassium 4.1 mmol/L (3.5-5.1); Sodium 132 mmol/L (136-145)
[2022-09-03 04:55] LABS: Alanine Aminotransferase < 6 U/L (13-56); Albumin 1.1 g/dL (3.4-5.0); Anion Gap 9 (5-15); Aspartate Aminotransferase 7 U/L (15-37); Blood Urea Nitrogen 13 mg/dL (7-18); Calcium 7.3 mg/dL (8.5-10.1); Carbon Dioxide 23 mmol/L (21-32); GFR African American 157 mL/min; GFR Non-African American 130 mL/min; Glucose 289 mg/dL (74-106)
[2022-09-03 04:57] LABS: Alkaline Phosphatase 107 U/L (45-117); Bilirubin, Total 0.3 mg/dL (0.2-1.0); Total Protein 5.5 g/dL (6.4-8.2)
[2022-09-03] MEDS: CLINDAMYCIN 900MG IV 50 ML IV SCH ×3 (06:30→21:31)
[2022-09-03] MEDS: ACCU-CHEK COMFORT CURVE STRIP VI SCH ×4 (07:00→21:31)
[2022-09-03 07:27] LABS: INR 1.2 (0.9-1.15); Partial Thromboplastin Time 35.6 sec (24.6-33.4)
[2022-09-03] MEDS: InsuLIN REG 1unit/0.01ml Soln (100units/ml) SC SCH ×4 (07:35→21:40)
[2022-09-03] MEDS: NOREPINEPHRINE 8 MG/250ML KIT 250 ML IV SCH (08:45)
[2022-09-03] MEDS: SODIUM CHLOR 0.9% PF (SALINE LOCK) 10ML VIAL/SYR IV SCH ×2 (10:00→21:31)
[2022-09-03] MEDS ORDERED: INSULIN LANTUS (GLARGINE) 1 /0.01ml (100units/ml) SC ONE (11:00)
[2022-09-03] MEDS: PANTOPRAZOLE 40 MG/10 ML VIAL INJ IV SCH (11:19)
[2022-09-03] MEDS: HYDROcodone-ACET 5/325MG TAB PO PRN ×2 (11:19→23:25)
[2022-09-03] MEDS: VANCOMYCIN 1GM/250ML 250 ML IV SCH (11:20)
[2022-09-03] MEDS: ENOXAPARIN SOD 40 MG/0.4 ML SYRINGE SC SCH (11:20)
[2022-09-03] MEDS: FLORASTOR (S. BOULARDII) 250 MG CAP PO SCH ×2 (11:20→21:31)
[2022-09-03] MEDS: MIDAZOLAM DRIP 50 mg/50mL 50 ML IV SCH (11:37)
[2022-09-03] MEDS: PROPOFOL 100 ML IV SCH (11:45)
[2022-09-03] MEDS: fentaNYL Drip 2500mCg/250mlNS 250 ML IV SCH (11:45)
[2022-09-03] MEDS ORDERED: TEMAZEPAM 15 MG CAP PO PRN (15:15)
[2022-09-03] MEDS: SODIUM BICARBONATE 50ML VIAL 50 ML in SOD CHL 0.45% 1,000 ML IV SCH ×2 (16:31→19:30)
[2022-09-04] VITALS (48 sets, daily range): BP systolic 73–117; BP diastolic 35–71
[2022-09-04] MEDS: VANCOMYCIN 1GM/250ML 250 ML IV SCH ×2 (01:30→16:26)
[2022-09-04] MEDS: MEROPENEM 1GM IVPB 100 ML IV SCH ×3 (03:05→20:00)
[2022-09-04 04:12] LABS: Basophils # (auto) 0 10 ^3/uL (0-0.2); Basophils % (auto) 0.2 % (0.0-2.0); Hemoglobin 7.4 g/dL (12.2-16.2); Mean Corpuscular Hemoglobin 27.3 pg (28.0-32.0); Monocytes # (auto) 0.3 10 ^3/uL (0-1.3)
[2022-09-04 04:14] LABS: Albumin 1.1 g/dL (3.4-5.0); BUN/Creatinine Ratio 30.2; Calcium 7.2 mg/dL (8.5-10.1); Potassium 3.6 mmol/L (3.5-5.1)
[2022-09-04 04:15] LABS: Eosinophils # (auto) 0 10 ^3/uL (0-0.8); Eosinophils % (auto) 0.5 % (0.0-7.0); Hematocrit 21.7 % (36.0-46.0); Lymphocytes # (auto) 1.9 10 ^3/uL (0.4-5.4); Lymphocytes % (auto) 21.6 % (10.0-50.0); Mean Corpuscular Hgb Conc. 34.2 g/dL (32.0-36.0); Mean Corpuscular Volume 79.7 fL (80.0-100.0); Monocytes % (auto) 3.8 % (0.0-12.0); Neutrophils # (auto) 6.6 10 ^3/uL (1.6-8.6); Neutrophils % (auto) 73.9 % (37.0-80.0); Red Blood Cells 2.73 10^6/uL (4.0-5.20); Red Cell Distribution Width 12.4 % (11.8-14.3); White Blood Cell 8.9 10^3/uL (4.4-10.8)
[2022-09-04 04:16] LABS: Bilirubin, Total 0.2 mg/dL (0.2-1.0); Total Protein 4.9 g/dL (6.4-8.2)
[2022-09-04] MEDS: SODIUM BICARBONATE 50ML VIAL 50 ML in SOD CHL 0.45% 1,000 ML IV SCH ×2 (05:30→20:38)
[2022-09-04] MEDS: CLINDAMYCIN 900MG IV 50 ML IV SCH (06:25)
[2022-09-04] MEDS: ACCU-CHEK COMFORT CURVE STRIP VI SCH ×4 (06:26→21:55)
[2022-09-04] MEDS: InsuLIN REG 1unit/0.01ml Soln (100units/ml) SC SCH ×4 (06:26→21:56)
[2022-09-04] MEDS: NOREPINEPHRINE 8 MG/250ML KIT 250 ML IV SCH (08:45)
[2022-09-04] MEDS ORDERED: ONDANSETRON HCL 4 MG/2 ML VIAL ONE ×3 (08:52→13:12)
[2022-09-04] MEDS ORDERED: PROPOFOL 10 MG/ML 20 ML IV ONE ×2 (09:41→10:48)
[2022-09-04] MEDS ORDERED: DexAMETHasone SOD PHOS 10MG/1ML VIAL INJ ONE (09:42)
[2022-09-04] MEDS ORDERED: KETOROLAC TROMETH 30 MG/ML 1ML VIAL ONE (09:42)
[2022-09-04] MEDS ORDERED: GLYCOPYRROLATE 0.2 MG/ML 1ML VIAL ONE (09:42)
[2022-09-04] MEDS ORDERED: fentaNYL CITRATE 100 MCG/2 ML VL ONE ×2 (09:43→10:53)
[2022-09-04] MEDS ORDERED: KETAMINE HCL 10 ML ONE (09:43)
[2022-09-04] MEDS ORDERED: TOBRAMYCIN SULFATE 40 MG/ML 2ML VIAL XX ONE (10:00)
[2022-09-04] MEDS ORDERED: ceFAZolin 1GM/50ML 100 ML IV ONE (10:14)
[2022-09-04] MEDS ORDERED: SUCCINYLCHOLINE CHLORIDE 20 MG/ML 10ML VIAL IV ONE (10:32)
[2022-09-04] MEDS ORDERED: GENTAMICIN SULF 80 MG/2 ML VIAL ONE (11:25)
[2022-09-04] MEDS ORDERED: VANCOMYCIN HCL 1000 MG VL ONE (11:25)
[2022-09-04] MEDS ORDERED: HYDROmorphone HCL 2 MG/ML VL/or syr IV PRN (12:15)
[2022-09-04] MEDS ORDERED: ONDANSETRON HCL 4 MG/2 ML VIAL IV PRN (12:15)
[2022-09-04] MEDS ORDERED: LIDOCAINE 2% (LOCAL ANESTH.) PF 5ml SDV ONE (13:12)
[2022-09-04] MEDS: MORPHINE SULFATE INJ 2 MG/ml SYRG IV PRN (16:57)
[2022-09-04] MEDS: PANTOPRAZOLE 40 MG/10 ML VIAL INJ IV SCH (20:26)
[2022-09-04] MEDS: INSULIN LANTUS (GLARGINE) 1 /0.01ml (100units/ml) SC SCH (20:27)
[2022-09-04] MEDS: SODIUM CHLOR 0.9% PF (SALINE LOCK) 10ML VIAL/SYR IV SCH ×2 (20:27→21:55)
[2022-09-04] MEDS: FLORASTOR (S. BOULARDII) 250 MG CAP PO SCH ×2 (20:27→21:55)
[2022-09-04] MEDS: ENOXAPARIN SOD 40 MG/0.4 ML SYRINGE SC SCH (20:27)
[2022-09-04] MEDS: PROPOFOL 100 ML IV SCH (20:28)
[2022-09-04] MEDS: fentaNYL Drip 2500mCg/250mlNS 250 ML IV SCH (20:28)
[2022-09-04] MEDS: HYDROcodone-ACET 5/325MG TAB PO PRN (20:30)
[2022-09-04] MEDS: MIDAZOLAM DRIP 50 mg/50mL 50 ML IV SCH (20:36)
[2022-09-04] MEDS: CLINDAMYCIN 600MG IV 50 ML IV SCH ×2 (20:38→23:30)
[2022-09-05] VITALS (86 sets, daily range): BP systolic 77–122; BP diastolic 33–62
[2022-09-05] MEDS: MEROPENEM 1GM IVPB 100 ML IV SCH ×3 (03:15→20:14)
[2022-09-05] MEDS: SODIUM BICARBONATE 50ML VIAL 50 ML in SOD CHL 0.45% 1,000 ML IV SCH (04:30)
[2022-09-05 04:56] LABS: Basophils # (auto) 0 10 ^3/uL (0-0.2); Basophils % (auto) 0.1 % (0.0-2.0); Eosinophils # (auto) 0 10 ^3/uL (0-0.8); Eosinophils % (auto) 0.4 % (0.0-7.0); Lymphocytes # (auto) 1.4 10 ^3/uL (0.4-5.4); Monocytes # (auto) 0.5 10 ^3/uL (0-1.3); Monocytes % (auto) 4.8 % (0.0-12.0)
[2022-09-05 04:59] LABS: Hematocrit 20.6 % (36.0-46.0); Hemoglobin 7.1 g/dL (12.2-16.2); Lymphocytes % (auto) 14.7 % (10.0-50.0); Mean Corpuscular Hemoglobin 27.7 pg (28.0-32.0); Mean Corpuscular Hgb Conc. 34.3 g/dL (32.0-36.0); Mean Corpuscular Volume 80.9 fL (80.0-100.0); Neutrophils # (auto) 7.5 10 ^3/uL (1.6-8.6); Red Blood Cells 2.54 10^6/uL (4.0-5.20); Red Cell Distribution Width 12.6 % (11.8-14.3); White Blood Cell 9.4 10^3/uL (4.4-10.8)
[2022-09-05 05:15] LABS: Alanine Aminotransferase < 6 U/L (13-56); Albumin 1.1 g/dL (3.4-5.0); Anion Gap 9 (5-15); Aspartate Aminotransferase 11 U/L (15-37); BUN/Creatinine Ratio 23.5; Blood Urea Nitrogen 12 mg/dL (7-18); Carbon Dioxide 26 mmol/L (21-32); Chloride 102 mmol/L (98-107); GFR African American 161 mL/min; GFR Non-African American 133 mL/min; Glucose 148 mg/dL (74-106); Potassium 3.5 mmol/L (3.5-5.1); Sodium 137 mmol/L (136-145)
[2022-09-05 05:18] LABS: Alkaline Phosphatase 74 U/L (45-117); Bilirubin, Total 0.2 mg/dL (0.2-1.0); Total Protein 4.7 g/dL (6.4-8.2)
[2022-09-05] MEDS: InsuLIN REG 1unit/0.01ml Soln (100units/ml) SC SCH ×4 (06:34→22:07)
[2022-09-05] MEDS: CLINDAMYCIN 600MG IV 50 ML IV SCH ×3 (06:34→21:54)
[2022-09-05] MEDS: ACCU-CHEK COMFORT CURVE STRIP VI SCH ×4 (06:34→21:54)
[2022-09-05] MEDS: ONDANSETRON HCL 4 MG/2 ML VIAL IV PRN (06:53)
[2022-09-05] MEDS: VANCOMYCIN 1GM/250ML 250 ML IV SCH (08:21)
[2022-09-05] MEDS: NOREPINEPHRINE 8 MG/250ML KIT 250 ML IV SCH (08:45)
[2022-09-05] MEDS: FLORASTOR (S. BOULARDII) 250 MG CAP PO SCH ×2 (09:52→21:54)
[2022-09-05] MEDS: PANTOPRAZOLE 40 MG/10 ML VIAL INJ IV SCH (09:53)
[2022-09-05] MEDS: ENOXAPARIN SOD 40 MG/0.4 ML SYRINGE SC SCH (09:53)
[2022-09-05] MEDS: SODIUM CHLOR 0.9% PF (SALINE LOCK) 10ML VIAL/SYR IV SCH ×2 (10:00→22:07)
[2022-09-05] MEDS: INSULIN LANTUS (GLARGINE) 1 /0.01ml (100units/ml) SC SCH (10:28)
[2022-09-05] MEDS: HYDROcodone-ACET 5/325MG TAB PO PRN ×2 (10:49→18:43)
[2022-09-05] MEDS: PROPOFOL 100 ML IV SCH (11:45)
[2022-09-05] MEDS: fentaNYL Drip 2500mCg/250mlNS 250 ML IV SCH (11:45)
[2022-09-05] MEDS: MIDAZOLAM DRIP 50 mg/50mL 50 ML IV SCH (11:45)
[2022-09-05] MEDS: SODIUM CHLORIDE 0.9% 1,000 ML IV SCH ×2 (20:14→23:15)
[2022-09-06] VITALS (69 sets, daily range): BP systolic 80–150; BP diastolic 38–131
[2022-09-06] MEDS: VANCOMYCIN 1GM/250ML 250 ML IV SCH (00:05)
[2022-09-06] MEDS: MEROPENEM 1GM IVPB 100 ML IV SCH ×3 (02:59→19:11)
[2022-09-06 04:34] LABS: Eosinophils # (auto) 0.1 10 ^3/uL (0-0.8); Lymphocytes # (auto) 1.9 10 ^3/uL (0.4-5.4); Mean Corpuscular Hemoglobin 27.4 pg (28.0-32.0)
[2022-09-06 04:37] LABS: Basophils # (auto) 0.1 10 ^3/uL (0-0.2); Basophils % (auto) 0.7 % (0.0-2.0); Eosinophils % (auto) 1.4 % (0.0-7.0); Hematocrit 20.2 % (36.0-46.0); Lymphocytes % (auto) 24.7 % (10.0-50.0); Mean Corpuscular Hgb Conc. 34.1 g/dL (32.0-36.0); Mean Corpuscular Volume 80.3 fL (80.0-100.0); Monocytes # (auto) 0.4 10 ^3/uL (0-1.3); Monocytes % (auto) 5.2 % (0.0-12.0); Neutrophils # (auto) 5.4 10 ^3/uL (1.6-8.6); Red Blood Cells 2.52 10^6/uL (4.0-5.20); Red Cell Distribution Width 12.6 % (11.8-14.3); White Blood Cell 7.9 10^3/uL (4.4-10.8)
[2022-09-06 04:48] LABS: BUN/Creatinine Ratio 21.1; Calcium 7.5 mg/dL (8.5-10.1); Potassium 3.6 mmol/L (3.5-5.1)
[2022-09-06] MEDS: HYDROcodone-ACET 5/325MG TAB PO PRN ×2 (04:49→20:31)
[2022-09-06 05:04] LABS: Hemoglobin 6.9 g/dL (12.2-16.2)
[2022-09-06] MEDS: InsuLIN REG 1unit/0.01ml Soln (100units/ml) SC SCH ×4 (06:45→22:07)
[2022-09-06] MEDS: CLINDAMYCIN 600MG IV 50 ML IV SCH ×3 (06:45→22:10)
[2022-09-06] MEDS: ACCU-CHEK COMFORT CURVE STRIP VI SCH ×4 (06:45→22:07)
[2022-09-06] MEDS: NOREPINEPHRINE 8 MG/250ML KIT 250 ML IV SCH (09:00)
[2022-09-06] MEDS: FLORASTOR (S. BOULARDII) 250 MG CAP PO SCH ×2 (10:00→22:11)
[2022-09-06] MEDS: INSULIN LANTUS (GLARGINE) 1 /0.01ml (100units/ml) SC SCH (10:00)
[2022-09-06] MEDS: ENOXAPARIN SOD 40 MG/0.4 ML SYRINGE SC SCH (10:00)
[2022-09-06] MEDS: SODIUM CHLOR 0.9% PF (SALINE LOCK) 10ML VIAL/SYR IV SCH ×2 (10:16→22:10)
[2022-09-06] MEDS: PANTOPRAZOLE 40 MG/10 ML VIAL INJ IV SCH (10:19)
[2022-09-06] MEDS: fentaNYL Drip 2500mCg/250mlNS 250 ML IV SCH (11:45)
[2022-09-06] MEDS ORDERED: VANCOMYCIN HCL 1000 MG VL ONE (13:12)
[2022-09-06] MEDS: SODIUM CHLORIDE 0.9% 1,000 ML IV SCH ×2 (13:15→21:38)
[2022-09-06] MEDS ORDERED: fentaNYL CITRATE 100 MCG/2 ML VL ONE (13:32)
[2022-09-06] MEDS ORDERED: MIDAZOLAM HCL 2MG/2ML 2ml VIAL (1mg/ml) ONE (13:32)
[2022-09-06] MEDS ORDERED: BUPIVACAINE HCL 0.25% P/F 10 ML VIAL ONE (13:59)
[2022-09-06] MEDS ORDERED: KETOROLAC TROMETH 30 MG/ML 1ML VIAL ONE (14:00)
[2022-09-06] MEDS ORDERED: MORPHINE SULF PF 5 MG/10 ML VIAL ONE (14:06)
[2022-09-06] MEDS ORDERED: HYDROmorphone HCL 2 MG/ML VL/or syr IV PRN (14:30)
[2022-09-06] MEDS ORDERED: ONDANSETRON HCL 4 MG/2 ML VIAL IV PRN (14:30)
[2022-09-06] MEDS ORDERED: ONDANSETRON HCL 4 MG/2 ML VIAL ONE (14:37)
[2022-09-06] MEDS ORDERED: PROPOFOL 10 MG/ML 20 ML IV ONE (14:38)
[2022-09-06] MEDS ORDERED: SUCCINYLCHOLINE CHLORIDE 20 MG/ML 10ML VIAL IV ONE (15:07)
[2022-09-06 17:11] LABS: Basophils # (auto) 0 10 ^3/uL (0-0.2); Basophils % (auto) 0.4 % (0.0-2.0); Eosinophils # (auto) 0.1 10 ^3/uL (0-0.8); Eosinophils % (auto) 0.9 % (0.0-7.0); Hematocrit 21.4 % (36.0-46.0); Hemoglobin 7.2 g/dL (12.2-16.2); Lymphocytes # (auto) 0.9 10 ^3/uL (0.4-5.4); Lymphocytes % (auto) 12.7 % (10.0-50.0); Mean Corpuscular Hgb Conc. 33.6 g/dL (32.0-36.0); Mean Corpuscular Volume 80.5 fL (80.0-100.0); Monocytes # (auto) 0.3 10 ^3/uL (0-1.3); Monocytes % (auto) 3.7 % (0.0-12.0); Neutrophils # (auto) 6.1 10 ^3/uL (1.6-8.6); Neutrophils % (auto) 82.3 % (37.0-80.0); Red Blood Cells 2.65 10^6/uL (4.0-5.20); White Blood Cell 7.4 10^3/uL (4.4-10.8)
[2022-09-07] VITALS (7 sets, daily range): BP systolic 101–120; BP diastolic 50–75
[2022-09-07] MEDS ORDERED: VANCOMYCIN 1GM/250ML 250 ML IV SCH (01:00)
[2022-09-07] MEDS: MEROPENEM 1GM IVPB 100 ML IV SCH ×3 (03:00→22:47)
[2022-09-07] MEDS: SODIUM CHLORIDE 0.9% 1,000 ML IV SCH ×2 (05:15→19:06)
[2022-09-07] MEDS: CLINDAMYCIN 600MG IV 50 ML IV SCH (06:25)
[2022-09-07 06:34] LABS: Albumin 1.1 g/dL (3.4-5.0); Anion Gap 7 (5-15); BUN/Creatinine Ratio 22.5; Blood Urea Nitrogen 9 mg/dL (7-18); Calcium 6.8 mg/dL (8.5-10.1); Carbon Dioxide 26 mmol/L (21-32); Chloride 106 mmol/L (98-107); GFR African American 213 mL/min; GFR Non-African American 176 mL/min; Glucose 173 mg/dL (74-106); Potassium 3.7 mmol/L (3.5-5.1); Sodium 139 mmol/L (136-145)
[2022-09-07 06:43] LABS: Basophils # (auto) 0 10 ^3/uL (0-0.2); Basophils % (auto) 0.5 % (0.0-2.0); Eosinophils # (auto) 0.1 10 ^3/uL (0-0.8); Eosinophils % (auto) 1.5 % (0.0-7.0); Hemoglobin 7.7 g/dL (12.2-16.2); Lymphocytes # (auto) 1.3 10 ^3/uL (0.4-5.4); Lymphocytes % (auto) 15.3 % (10.0-50.0); Mean Corpuscular Hemoglobin 27.7 pg (28.0-32.0); Mean Corpuscular Hgb Conc. 34.9 g/dL (32.0-36.0); Mean Corpuscular Volume 79.4 fL (80.0-100.0); Monocytes # (auto) 0.5 10 ^3/uL (0-1.3); Monocytes % (auto) 5.2 % (0.0-12.0); Neutrophils # (auto) 6.8 10 ^3/uL (1.6-8.6); Neutrophils % (auto) 77.5 % (37.0-80.0); Red Blood Cells 2.77 10^6/uL (4.0-5.20); Red Cell Distribution Width 13.9 % (11.8-14.3); White Blood Cell 8.8 10^3/uL (4.4-10.8)
[2022-09-07 06:45] LABS: Alanine Aminotransferase < 6 U/L (13-56); Alkaline Phosphatase 71 U/L (45-117); Aspartate Aminotransferase 7 U/L (15-37); Bilirubin, Total 0.5 mg/dL (0.2-1.0); Total Protein 4.4 g/dL (6.4-8.2)
[2022-09-07] MEDS: InsuLIN REG 1unit/0.01ml Soln (100units/ml) SC SCH ×4 (07:00→22:00)
[2022-09-07] MEDS: NOREPINEPHRINE 8 MG/250ML KIT 250 ML IV SCH (08:45)
[2022-09-07] MEDS: PANTOPRAZOLE 40 MG/10 ML VIAL INJ IV SCH (10:12)
[2022-09-07] MEDS: ENOXAPARIN SOD 40 MG/0.4 ML SYRINGE SC SCH (10:12)
[2022-09-07] MEDS: FLORASTOR (S. BOULARDII) 250 MG CAP PO SCH ×2 (10:12→22:20)
[2022-09-07] MEDS: INSULIN LANTUS (GLARGINE) 1 /0.01ml (100units/ml) SC SCH (10:21)
[2022-09-07] MEDS: ONDANSETRON HCL 4 MG/2 ML VIAL IV PRN ×2 (10:33→15:44)
[2022-09-07] MEDS: SODIUM CHLOR 0.9% PF (SALINE LOCK) 10ML VIAL/SYR IV SCH ×2 (10:41→20:30)
[2022-09-07] MEDS: ACCU-CHEK COMFORT CURVE STRIP VI SCH ×4 (10:42→22:00)
[2022-09-07] MEDS ORDERED: DAKINS HALF STR 0.25% (NaHypochlorite) 473 ML TOPICAL SOL TOP ONE (11:45)
[2022-09-07] MEDS ORDERED: DAKINS QUARTER STR 0.125% (NaHypochlorite) 473 ML TOPICAL SOL TOP ONE (12:15)
[2022-09-07] MEDS ORDERED: VANCOMYCIN 1GM/250ML 250 ML IV ONE (17:30)
[2022-09-07] MEDS ORDERED: VANCOMYCIN PER PHARMACY 0 MG IV SCH (19:30)
[2022-09-07] MEDS: MUPIROCIN 2% OINT 15gm or 22gm FOR MRSA NARES EACHNOSTRI SCH (20:30)
[2022-09-07] MEDS: HYDROcodone-ACET 5/325MG TAB PO PRN (20:44)
[2022-09-08] MEDS: SODIUM CHLORIDE 0.9% 1,000 ML IV SCH ×3 (01:15→22:44)
[2022-09-08] MEDS: HYDROcodone-ACET 5/325MG TAB PO PRN ×3 (04:37→16:37)
[2022-09-08 05:00] VITALS: BP 129/67
[2022-09-08] MEDS: MEROPENEM 1GM IVPB 100 ML IV SCH ×3 (06:38→23:12)
[2022-09-08 06:40] LABS: Basophils # (auto) 0 10 ^3/uL (0-0.2); Eosinophils # (auto) 0.2 10 ^3/uL (0-0.8); Monocytes # (auto) 0.5 10 ^3/uL (0-1.3); Nucleated Red Blood Cells % 0.1 %; White Blood Cell 6.9 10^3/uL (4.4-10.8)
[2022-09-08 06:42] LABS: Basophils % (auto) 0.4 % (0.0-2.0); Eosinophils % (auto) 2.6 % (0.0-7.0); Hematocrit 23.2 % (36.0-46.0); Hemoglobin 7.7 g/dL (12.2-16.2); Lymphocytes # (auto) 1.3 10 ^3/uL (0.4-5.4); Lymphocytes % (auto) 18.9 % (10.0-50.0); Mean Corpuscular Hemoglobin 26.9 pg (28.0-32.0); Mean Corpuscular Hgb Conc. 33.2 g/dL (32.0-36.0); Mean Corpuscular Volume 81.3 fL (80.0-100.0); Monocytes % (auto) 7.7 % (0.0-12.0); Neutrophils # (auto) 4.9 10 ^3/uL (1.6-8.6); Neutrophils % (auto) 70.4 % (37.0-80.0); Red Blood Cells 2.86 10^6/uL (4.0-5.20)
[2022-09-08 06:56] LABS: Calcium 7.7 mg/dL (8.5-10.1); Potassium 3.6 mmol/L (3.5-5.1)
[2022-09-08 06:58] LABS: BUN/Creatinine Ratio 16.2
[2022-09-08] MEDS: ACCU-CHEK COMFORT CURVE STRIP VI SCH ×4 (07:00→22:42)
[2022-09-08] MEDS: InsuLIN REG 1unit/0.01ml Soln (100units/ml) SC SCH ×4 (07:00→22:00)
[2022-09-08] MEDS: PANTOPRAZOLE 40 MG TAB PO SCH (09:01)
[2022-09-08] MEDS: ENOXAPARIN SOD 40 MG/0.4 ML SYRINGE SC SCH (09:01)
[2022-09-08] MEDS: FLORASTOR (S. BOULARDII) 250 MG CAP PO SCH ×2 (09:01→22:42)
[2022-09-08] MEDS: MUPIROCIN 2% OINT 15gm or 22gm FOR MRSA NARES EACHNOSTRI SCH ×2 (09:02→22:41)
[2022-09-08 09:24] VITALS: BP 109/54
[2022-09-08] MEDS: SODIUM CHLOR 0.9% PF (SALINE LOCK) 10ML VIAL/SYR IV SCH ×2 (09:38→22:41)
[2022-09-08] MEDS: INSULIN LANTUS (GLARGINE) 1 /0.01ml (100units/ml) SC SCH (09:39)
[2022-09-08 13:00] VITALS: BP 113/53
[2022-09-08] MEDS ORDERED: VANCOMYCIN 1GM/250ML 250 ML IV ONE (14:02)
[2022-09-08 17:00] VITALS: BP 128/62
[2022-09-08 23:17] VITALS: BP 111/53
[2022-09-09 05:16] VITALS: BP 124/65
[2022-09-09] MEDS: InsuLIN REG 1unit/0.01ml Soln (100units/ml) SC SCH ×4 (06:56→22:00)
[2022-09-09] MEDS: ACCU-CHEK COMFORT CURVE STRIP VI SCH ×4 (06:56→22:00)
[2022-09-09] MEDS: MEROPENEM 1GM IVPB 100 ML IV SCH ×3 (06:56→22:15)
[2022-09-09] MEDS: SODIUM CHLORIDE 0.9% 1,000 ML IV SCH ×2 (06:57→17:43)
[2022-09-09] MEDS: HYDROcodone-ACET 5/325MG TAB PO PRN ×3 (07:44→21:09)
[2022-09-09 09:19] VITALS: BP 130/73
[2022-09-09] MEDS ORDERED: VANCOMYCIN 1GM/250ML 250 ML IV ONE (11:00)
[2022-09-09] MEDS: ENOXAPARIN SOD 40 MG/0.4 ML SYRINGE SC SCH (12:01)
[2022-09-09] MEDS: FLORASTOR (S. BOULARDII) 250 MG CAP PO SCH ×2 (12:01→22:00)
[2022-09-09] MEDS: PANTOPRAZOLE 40 MG TAB PO SCH (12:01)
[2022-09-09] MEDS: SODIUM CHLOR 0.9% PF (SALINE LOCK) 10ML VIAL/SYR IV SCH ×2 (12:02→22:00)
[2022-09-09] MEDS: MUPIROCIN 2% OINT 15gm or 22gm FOR MRSA NARES EACHNOSTRI SCH ×2 (12:19→22:00)
[2022-09-09 12:56] VITALS: BP 127/72
[2022-09-09] MEDS: INSULIN LANTUS (GLARGINE) 1 /0.01ml (100units/ml) SC SCH (14:56)
[2022-09-09 17:04] VITALS: BP 119/60
[2022-09-09 22:00] VITALS: BP 108/56
[2022-09-10] MEDS: SODIUM CHLORIDE 0.9% 1,000 ML IV SCH (03:15)
[2022-09-10 05:00] VITALS: BP 109/56
[2022-09-10] MEDS: MEROPENEM 1GM IVPB 100 ML IV SCH ×3 (06:12→23:00)
[2022-09-10] MEDS: ACETAMINOPHEN 325 MG TAB PO PRN (06:12)
[2022-09-10] MEDS: InsuLIN REG 1unit/0.01ml Soln (100units/ml) SC SCH ×4 (06:13→21:15)
[2022-09-10] MEDS: ACCU-CHEK COMFORT CURVE STRIP VI SCH ×4 (06:48→21:24)
[2022-09-10 08:33] LABS: Lymphocytes # (auto) 1.2 10 ^3/uL (0.4-5.4); Monocytes # (auto) 0.5 10 ^3/uL (0-1.3); Neutrophils # (auto) 3.9 10 ^3/uL (1.6-8.6); Nucleated Red Blood Cells % 0.1 %; White Blood Cell 5.7 10^3/uL (4.4-10.8)
[2022-09-10 08:35] LABS: Basophils # (auto) 0 10 ^3/uL (0-0.2); Basophils % (auto) 0.8 % (0.0-2.0); Eosinophils # (auto) 0.2 10 ^3/uL (0-0.8); Eosinophils % (auto) 2.7 % (0.0-7.0); Hematocrit 25.4 % (36.0-46.0); Hemoglobin 8.3 g/dL (12.2-16.2); Lymphocytes % (auto) 20.5 % (10.0-50.0); Mean Corpuscular Hemoglobin 26.2 pg (28.0-32.0); Mean Corpuscular Hgb Conc. 32.7 g/dL (32.0-36.0); Mean Corpuscular Volume 80.1 fL (80.0-100.0); Red Blood Cells 3.17 10^6/uL (4.0-5.20); Red Cell Distribution Width 13.8 % (11.8-14.3)
[2022-09-10 08:52] LABS: Albumin 1.1 g/dL (3.4-5.0); Anion Gap 6 (5-15); Blood Urea Nitrogen 8 mg/dL (7-18); Calcium 7.6 mg/dL (8.5-10.1); Carbon Dioxide 29 mmol/L (21-32); Chloride 106 mmol/L (98-107); Glucose 109 mg/dL (74-106); Potassium 3.9 mmol/L (3.5-5.1); Sodium 141 mmol/L (136-145)
[2022-09-10 08:54] LABS: Alanine Aminotransferase < 6 U/L (13-56); Aspartate Aminotransferase 9 U/L (15-37); BUN/Creatinine Ratio 23.5; GFR African American 257 mL/min; GFR Non-African American 212 mL/min
[2022-09-10 08:56] LABS: Alkaline Phosphatase 91 U/L (45-117); Bilirubin, Total 0.2 mg/dL (0.2-1.0); Total Protein 5.1 g/dL (6.4-8.2)
[2022-09-10 09:00] VITALS: BP 108/57
[2022-09-10] MEDS: ENOXAPARIN SOD 40 MG/0.4 ML SYRINGE SC SCH (09:10)
[2022-09-10] MEDS: PANTOPRAZOLE 40 MG TAB PO SCH (09:10)
[2022-09-10] MEDS: HYDROcodone-ACET 5/325MG TAB PO PRN ×2 (09:10→21:01)
[2022-09-10] MEDS: FLORASTOR (S. BOULARDII) 250 MG CAP PO SCH ×2 (09:10→21:24)
[2022-09-10] MEDS: INSULIN LANTUS (GLARGINE) 1 /0.01ml (100units/ml) SC SCH (10:00)
[2022-09-10] MEDS ORDERED: VANCOMYCIN 1GM/250ML 250 ML IV ONE (11:45)
[2022-09-10 13:11] VITALS: BP 120/48
[2022-09-10 16:38] VITALS: BP 140/65
[2022-09-10] MEDS: MUPIROCIN 2% OINT 15gm or 22gm FOR MRSA NARES EACHNOSTRI SCH ×2 (17:49→21:23)
[2022-09-10] MEDS: SODIUM CHLOR 0.9% PF (SALINE LOCK) 10ML VIAL/SYR IV SCH ×2 (17:49→22:00)
[2022-09-10 22:00] VITALS: BP 122/56
[2022-09-10] MEDS: MORPHINE SULFATE INJ 2 MG/ml SYRG IV PRN (22:47)
[2022-09-11] MEDS: ACETAMINOPHEN 325 MG TAB PO PRN (03:55)
[2022-09-11 05:00] VITALS: BP 106/64
[2022-09-11] MEDS: MEROPENEM 1GM IVPB 100 ML IV SCH ×2 (05:50→15:00)
[2022-09-11] MEDS: InsuLIN REG 1unit/0.01ml Soln (100units/ml) SC SCH ×4 (05:51→23:43)
[2022-09-11 06:09] LABS: Basophils # (auto) 0 10 ^3/uL (0-0.2); Eosinophils # (auto) 0.1 10 ^3/uL (0-0.8)
[2022-09-11 06:12] LABS: Basophils % (auto) 0.3 % (0.0-2.0); Eosinophils % (auto) 2.3 % (0.0-7.0); Lymphocytes # (auto) 1.3 10 ^3/uL (0.4-5.4); Lymphocytes % (auto) 24.1 % (10.0-50.0); Mean Corpuscular Hgb Conc. 32.3 g/dL (32.0-36.0); Mean Corpuscular Volume 80.6 fL (80.0-100.0); Monocytes # (auto) 0.5 10 ^3/uL (0-1.3); Monocytes % (auto) 8.8 % (0.0-12.0); Neutrophils # (auto) 3.5 10 ^3/uL (1.6-8.6); Neutrophils % (auto) 64.5 % (37.0-80.0); Nucleated Red Blood Cells % 0.1 %; Red Blood Cells 2.61 10^6/uL (4.0-5.20); Red Cell Distribution Width 13.9 % (11.8-14.3); White Blood Cell 5.5 10^3/uL (4.4-10.8)
[2022-09-11 06:24] LABS: Calcium 7.7 mg/dL (8.5-10.1); Chloride 105 mmol/L (98-107); Sodium 140 mmol/L (136-145)
[2022-09-11 06:29] LABS: Hemoglobin 6.8 g/dL (12.2-16.2)
[2022-09-11 06:34] LABS: Alanine Aminotransferase < 6 U/L (13-56); Albumin 1.1 g/dL (3.4-5.0); Alkaline Phosphatase 82 U/L (45-117); Anion Gap 5 (5-15); Aspartate Aminotransferase 8 U/L (15-37); Bilirubin, Total 0.2 mg/dL (0.2-1.0); Blood Urea Nitrogen 7 mg/dL (7-18); Carbon Dioxide 30 mmol/L (21-32); Glucose 87 mg/dL (74-106); Total Protein 4.9 g/dL (6.4-8.2)
[2022-09-11 06:55] LABS: BUN/Creatinine Ratio 21.9; GFR African American 276 mL/min; GFR Non-African American 228 mL/min
[2022-09-11] MEDS: ACCU-CHEK COMFORT CURVE STRIP VI SCH ×4 (07:06→23:38)
[2022-09-11 08:35] VITALS: BP 115/59
[2022-09-11] MEDS: INSULIN LANTUS (GLARGINE) 1 /0.01ml (100units/ml) SC SCH (10:00)
[2022-09-11] MEDS: SODIUM CHLOR 0.9% PF (SALINE LOCK) 10ML VIAL/SYR IV SCH ×2 (10:00→23:31)
[2022-09-11 10:50] LABS: Basophils # (auto) 0 10 ^3/uL (0-0.2); Eosinophils # (auto) 0.1 10 ^3/uL (0-0.8); Hemoglobin 8.1 g/dL (12.2-16.2); Lymphocytes # (auto) 1.1 10 ^3/uL (0.4-5.4); Mean Corpuscular Hemoglobin 26.8 pg (28.0-32.0); Monocytes # (auto) 0.5 10 ^3/uL (0-1.3); Red Blood Cells 3.03 10^6/uL (4.0-5.20); Red Cell Distribution Width 14.2 % (11.8-14.3)
[2022-09-11 10:52] LABS: Basophils % (auto) 0.7 % (0.0-2.0); Eosinophils % (auto) 1.8 % (0.0-7.0); Hematocrit 24.3 % (36.0-46.0); Lymphocytes % (auto) 18.2 % (10.0-50.0); Mean Corpuscular Hgb Conc. 33.4 g/dL (32.0-36.0); Mean Corpuscular Volume 80.4 fL (80.0-100.0); Monocytes % (auto) 8.8 % (0.0-12.0); Neutrophils # (auto) 4.1 10 ^3/uL (1.6-8.6); Neutrophils % (auto) 70.5 % (37.0-80.0); White Blood Cell 5.8 10^3/uL (4.4-10.8)
[2022-09-11] MEDS: MORPHINE SULFATE INJ 2 MG/ml SYRG IV PRN ×2 (12:16→21:21)
[2022-09-11] MEDS: ENOXAPARIN SOD 40 MG/0.4 ML SYRINGE SC SCH (12:17)
[2022-09-11] MEDS: FLORASTOR (S. BOULARDII) 250 MG CAP PO SCH ×2 (12:17→23:31)
[2022-09-11 12:40] VITALS: BP 129/74
[2022-09-11] MEDS: MUPIROCIN 2% OINT 15gm or 22gm FOR MRSA NARES EACHNOSTRI SCH ×2 (15:12→23:31)
[2022-09-11] MEDS: VANCOMYCIN 1GM/250ML 250 ML IV SCH ×2 (15:13→21:58)
[2022-09-11 16:30] VITALS: BP 128/66
[2022-09-11] MEDS: HYDROcodone-ACET 5/325MG TAB PO PRN (19:11)
[2022-09-11 22:00] VITALS: BP 129/63
[2022-09-12] MEDS: MEROPENEM 1GM IVPB 100 ML IV SCH ×2 (00:15→06:36)
[2022-09-12] MEDS: VANCOMYCIN 1GM/250ML 250 ML IV SCH (04:38)
[2022-09-12 05:00] VITALS: BP 127/67
[2022-09-12] MEDS: ACCU-CHEK COMFORT CURVE STRIP VI SCH ×2 (06:47→11:33)
[2022-09-12] MEDS: InsuLIN REG 1unit/0.01ml Soln (100units/ml) SC SCH ×2 (06:48→11:32)
[2022-09-12] MEDS: HYDROcodone-ACET 5/325MG TAB PO PRN ×2 (06:52→13:14)
[2022-09-12 08:45] VITALS: BP 123/61
[2022-09-12] MEDS: ENOXAPARIN SOD 40 MG/0.4 ML SYRINGE SC SCH (09:48)
[2022-09-12] MEDS: SODIUM CHLOR 0.9% PF (SALINE LOCK) 10ML VIAL/SYR IV SCH (09:48)
[2022-09-12] MEDS: FLORASTOR (S. BOULARDII) 250 MG CAP PO SCH (09:48)
[2022-09-12] MEDS: MUPIROCIN 2% OINT 15gm or 22gm FOR MRSA NARES EACHNOSTRI SCH (09:50)
[2022-09-12] MEDS: INSULIN LANTUS (GLARGINE) 1 /0.01ml (100units/ml) SC SCH (09:59)
[2022-09-12] MEDS ORDERED: HYDR1TAB97 PO (12:01)
[2022-09-12 13:04] VITALS: BP 138/71
[2022-09-12 13:58] VITALS: BP 138/71
== END 2022-09-12 14:45 | disposition home health service (06) | DRG 710 ==
LOC: ER 04:25 → TELE 15:35 → ICU WEST 08-28 09:26 → TELE-WESTW 09-07 02:10 → WEST WING 09-07 18:36
PROVIDERS: ADMIT Registered Nurse; ATTEND Internal Medicine
PROC: 02HV33Z Insertion of Infusion Device into Superior Vena Cava, Percutaneous Approach (ICD-10-PCS; 2022-08-28)
PROC: 0LBL0ZZ Excision of Right Upper Leg Tendon, Open Approach (ICD-10-PCS; 2022-09-02)
PROC: 0LBL0ZZ Excision of Right Upper Leg Tendon, Open Approach (ICD-10-PCS; 2022-09-02)
PROC: 0JB70ZZ Excision of Back Subcutaneous Tissue and Fascia, Open Approach (ICD-10-PCS; 2022-09-02)
PROC: 0JB70ZZ Excision of Back Subcutaneous Tissue and Fascia, Open Approach (ICD-10-PCS; 2022-09-04)
PROC: 0KBQ0ZZ Excision of Right Upper Leg Muscle, Open Approach (ICD-10-PCS; 2022-09-06)
PROC: 0JB70ZZ Excision of Back Subcutaneous Tissue and Fascia, Open Approach (ICD-10-PCS; 2022-09-06)
PROC: 0QU10JZ Supplement Sacrum with Synthetic Substitute, Open Approach (ICD-10-PCS; 2022-09-06)
PROC: 30233N1 Transfusion of Nonautologous Red Blood Cells into Peripheral Vein, Percutaneous Approach (ICD-10-PCS; principal; 2022-09-06 13:29)
DX: A41.51 Sepsis due to Escherichia coli [E. coli] (principal); N17.0 Acute kidney failure with tubular necrosis; J96.00 Acute respiratory failure, unspecified whether with hypoxia or hypercapnia; R65.21 Severe sepsis with septic shock; M72.6 Necrotizing fasciitis; I21.A1 Myocardial infarction type 2; D63.8 Anemia in other chronic diseases classified elsewhere; E87.1 Hypo-osmolality and hyponatremia; N18.4 Chronic kidney disease, stage 4 (severe); Z20.822 Contact with and (suspected) exposure to COVID-19; L89.90 Pressure ulcer of unspecified site, unspecified stage; E11.22 Type 2 diabetes mellitus with diabetic chronic kidney disease; E03.9 Hypothyroidism, unspecified; E66.01 Morbid (severe) obesity due to excess calories; E87.6 Hypokalemia; I50.9 Heart failure, unspecified; I13.0 Hypertensive heart and chronic kidney disease with heart failure and stage 1 through stage 4 chronic kidney disease, or unspecified chronic kidney disease; L98.419 Non-pressure chronic ulcer of buttock with unspecified severity; N39.0 Urinary tract infection, site not specified; L03.115 Cellulitis of right lower limb; F11.20 Opioid dependence, uncomplicated; Z83.3 Family history of diabetes mellitus; Z68.39 Body mass index [BMI] 39.0-39.9, adult; Z88.8 Allergy status to other drugs, medicaments and biological substances; E44.0 Moderate protein-calorie malnutrition; B95.62 Methicillin resistant Staphylococcus aureus infection as the cause of diseases classified elsewhere
CPT/HCPCS: 36415; 36569; 36600; 71045; 72193; 80048; 80053; 80061; 80202; 81001; 82565; 82805; 82962; 83036; 83605; 83735; 83880; 84443; 84484; 85007; 85025; 85027; 85610; 85652; 85730; 86141; 86850; 86900; 86901; 86920; 87040; 87070; 87075; 87077; 87081; 87086; 87186; 87205; 87426; 87493; 93005; 93306; 93971; 94002; 96361; 96365; 96366; 96367; 96368; 96375; 97110; 97163; 97530; 99291; C9113; G0378; J0330; J0690; J1100; J1815; J1885; J2001; J2185; J2250; J2405; J2543; J2704; J3480; J3490; J7060

== ENCOUNTER 2024-09-10 05:55 | Day surgery (SDC) | payer MEDICAID ==
[2024-09-01 12:51] LABS: Basophils # (auto) 0 10 ^3/uL (0-0.2); Basophils % (auto) 0.7 % (0.0-2.0); Eosinophils # (auto) 0.3 10 ^3/uL (0-0.8); Eosinophils % (auto) 4.9 % (0.0-7.0); Hematocrit 41.5 % (36.0-46.0); Hemoglobin 14.1 g/dL (12.2-16.2); Lymphocytes # (auto) 1.4 10 ^3/uL (0.4-5.4); Lymphocytes % (auto) 26.8 % (10.0-50.0); Mean Corpuscular Hemoglobin 29.4 pg (28.0-32.0); Mean Corpuscular Hgb Conc. 33.9 g/dL (32.0-36.0); Mean Corpuscular Volume 86.7 fL (80.0-100.0); Monocytes # (auto) 0.4 10 ^3/uL (0-1.3); Monocytes % (auto) 7.6 % (0.0-12.0); Neutrophils # (auto) 3.2 10 ^3/uL (1.6-8.6); Nucleated Red Blood Cells % 0.1 %; Platelet Count (auto) 249 10^3/uL (140-450); Red Blood Cells 4.79 10^6/uL (4.0-5.20); Red Cell Distribution Width 12.9 % (11.8-14.3); White Blood Cell 5.4 10^3/uL (4.4-10.8)
[2024-09-01 13:03] LABS: INR 1.06 (0.9-1.15); Partial Thromboplastin Time 26.9 SEC (24.5-34.5); Prothrombin Time 11.2 sec (9.3-11.8)
[2024-09-01 13:40] LABS: Alanine Aminotransferase 18 U/L (7-40); Albumin 3.9 g/dL (3.2-4.8); Alkaline Phosphatase 112 U/L (46-116); Anion Gap 8 (5-15); Aspartate Aminotransferase 29 U/L (13-40); BUN/Creatinine Ratio 15.5 (10.0-20.0); Blood Urea Nitrogen 11 mg/dL (9-23); Calcium 9.9 mg/dL (8.7-10.4); Carbon Dioxide 26 mmol/L (20-31); Chloride 105 mmol/L (98-107); Potassium 4.5 mmol/L (3.5-5.1); Sodium 139 mmol/L (136-145)
[2024-09-01 13:41] LABS: Bilirubin, Total 0.4 mg/dL (0.2-1.0)
[2024-09-01 13:43] LABS: Glucose 221 mg/dL (74-106)
[2024-09-02 12:41] LABS: Urine Bacteria None Seen /hpf (None Seen)
[2024-09-02 12:48] LABS: Urine Blood 2+ /uL (Negative); Urine Budding Yeast FEW /hpf (None Seen); Urine Clarity Ex.Turbid (Clear); Urine Color Brown (Yellow); Urine Protein, UAD 2+ (Negative); Urine Squamous Epithelial Cell MOD /hpf (<5); Urine Urobilinogen Normal (Negative); Urine WBC 1423 /hpf (0 - 5); Urine WBC Clumps PRESENT /hpf (None Seen); Urine pH 5.5 (5.0-9.0)
[~2024-09-10] VITALS: Ht 165.1 cm; Wt 108.9 kg
[~2024-09-10 05:55] MED LIST changes: -AMLO-489 PO; +BACL10TA PO; -GABA-339 PO; +GABA800T97 PO; +HYDR-4798 PO; +LISI10TA34 PO; -LOSA-39 PO; +MECL1TAB42 PO
[2024-09-10] MEDS ORDERED: SUCCINYLCHOLINE CHLORIDE 20 MG/ML 10ML VIAL IV ONE (05:56)
[2024-09-10] MEDS ORDERED: HYDROmorphone HCL 2 MG/ML VL/or syr IV PRN ×2 (07:00)
[2024-09-10] MEDS ORDERED: ACCU-CHEK COMFORT CURVE STRIP VI ONE (07:00)
[2024-09-10] MEDS ORDERED: MORPHINE SULFATE INJ 2 MG/ml SYRG IV PRN (07:00)
[2024-09-10] MEDS ORDERED: MIDAZOLAM HCL 2MG/2ML 2ml VIAL (1mg/ml) ONE (07:01)
[2024-09-10] MEDS ORDERED: fentaNYL CITRATE 100 MCG/2 ML VL ONE (07:01)
[2024-09-10] MEDS ORDERED: KETAMINE 50mg/ML 1ml syringe ONE (07:01)
[2024-09-10] MEDS ORDERED: fentaNYL CITRATE 5 ML ONE (07:01)
[2024-09-10] MEDS ORDERED: SODIUM CHLORIDE LOCK 10 ML ONE (07:02)
[2024-09-10] MEDS ORDERED: DexAMETHasone SOD PHOS 10MG/1ML VIAL INJ ONE (07:02)
[2024-09-10] MEDS ORDERED: ONDANSETRON HCL 4 MG/2 ML VIAL ONE (07:02)
[2024-09-10] MEDS ORDERED: LIDOCAINE HCL 2% TOP JELLY 5ML TOP ONE (07:02)
[2024-09-10] MEDS ORDERED: LIDOCAINE 1% INJ PF 5ML AMP ONE (07:02)
[2024-09-10] MEDS ORDERED: MEPERIDINE HCL (25 MG/ML) 1ML VIAL ONE (07:02)
[2024-09-10] MEDS ORDERED: PROPOFOL 10 MG/ML 20 ML IV ONE (07:02)
[2024-09-10] MEDS ORDERED: ROCURONIUM 10MG/ML 10ML VIAL IV ONE (07:02)
[2024-09-10] MEDS: ceFAZolin 2 GM/D5W100ml 100 ML IV ONE (07:40)
[2024-09-10] MEDS ORDERED: ROPIVACAINE 0.5% (5MG/ML) 20ML AMPULE IJ ONE (09:31)
[2024-09-10] MEDS: ROPIVACAINE 0.5% (5MG/ML) 20ML AMPULE IJ ONE (09:35)
[2024-09-10 09:45] VITALS: TEMP 98.4; O2SAT 95
[2024-09-10] MEDS ORDERED: HYDROmorphone HCL 2 MG/ML VL/or syr ONE (09:57)
[2024-09-10] MEDS: HYDROmorphone HCL 2 MG/ML VL/or syr IV PRN (09:59)
--- NOTE | 2024-09-10 09:59 | DVHOP2 ---
Operative Report - 2 Report Details Date: 09/10/24 Preop Diagnosis: Right proximal tibia fracture Postop Diagnosis: right proximal tibia fracture Surgeon: Dre Giang MD Cable Driller: Bettye LAYNE Anesthesiologist: Bob Anesthesia: General Drains: Shelley closed wound suction Implant: Locked tech periarticular proximal tibial plate with 6 3.5 mm screws and 14.5 mm screw Consent: The patient was informed of the risks and benefits of the procedure. These include but are not limited to complications of anesthesia, postoperative infection, incomplete relief of symptoms, recurrence of symptoms, damage to blood vessels, nerves and tendons, deep venous thrombosis, pulmonary embolism and possible need for repeat surgery in the future. Complications: None Estimated Blood Loss: 50 cc Fluids: See anesthesia record Findings: Subacute right proximal tibia fracture with displacement and comminution with associated fibula fracture Indications for Surgery: Displaced unstable right proximal tib-fib fracture Name of Procedure Performed Open reduction internal fixation right proximal tibia fracture C-arm fluoroscopy Procedure Details Procedure Details: Patient was brought to the operating room and placed on the table in supine p osition. Patient was given general anesthetic. Preop patient received 2 g of IV Ancef. Tourniquet was applied to the right thigh. The right lower extremity was prepped and draped in sterile fashion. Surgical time-out was performed verifying patient, laterality, and procedure. I 1st brought in C-arm to observe the fracture and to see what kind of the closed reduction I could get. I was not able to get much reduction closed. The right lower extremity was elevated, exsanguinated with Esmarch, and tourniquet inflated to 250 mmHg. I made an S shaped incision over the lateral knee and down the proximal tibia. Subcutaneous dissection hemostasis performed with Bovie I identified the muscle fascia which was in continuity with ITP band and I made incision with Bovie and elevated fascia and muscle off the proximal tibia. I used elevators to help expose the fracture site along with a rongeur to remove early callus formation and small bone fragments. I also used the elevator to prepare space for proximal tibial plate. I applied a 4.5 plate and held in place proximally with a K-wire and distally with reduction forceps. Position was adjusted based on C-arm fluoroscopy. However I was concerned about the bulkiness proximally and the fact that it did not match the anatomy very well so I elected to switch over to a 3.5 plate. I again reduced the fracture with the plate in position using a tenaculum at the bone and bone holding forceps for the plate as well as fixing it proximally with a K-wire. In this way I was able to verify good reduction and plate placement both in the AP and lateral views with C-arm. I 1st fixed it proximally with a three five cortical screw drilling with a two seven drill bit and I measuring length with depth gauge and applied a proximal cortical screw. In similar fashion I applied a screw distally. I was then able to remove the bone holding forceps for the plate. I was also able to removed the proximal K- wire. I then attempted to place an interfragmentary screw from distal medial to proximal lateral with the three five screw however I was unable to get a good bite so I elected to use the four five screws over drilling the near cortex with a four five drill bit and drilling distally with a three two drill bit. I measured depth gauge and applied interfragmentary screw with fairly good bite achieved. I then placed two additional cortical screws distally which were three five. I then placed two locking cancellous screws proximally again using the two seven drill bit and depth gauge. The 1st oblique screw that I placed was not quite as good a bite as I would like so this was removed and I applied under locking screw here. Multiple views with C-arm fluoroscopy confirmed hardware placement and fracture reduction. I irrigated copiously with normal saline bulb syringe. Tourniquet was released and achieved hemostasis with the Bovie. The fascia was closed with 1 Ethibond. Deep subcu was closed with 0 Vicryl and superficial subQ was closed with 2-0 Vicryl and skin with ayde. Wound was dressed with shelley closed wound suction dressing. I applied knee immobilizer. Patient tolerated the procedure well was brought to recovery room in stable condition. Condition Stable Disposition Home DRE GIANG MD Sep 10, 2024 09:59
[2024-09-10] MEDS: KETOROLAC TROMETH 30 MG/ML 1ML VIAL IV ONE (10:00)
--- NOTE | 2024-09-10 10:04 | DVH ---
C-ARM FLUOROSCOPY: PROCEDURE: ORIF right tibia FLUOROSCOPY TIME: 87.9 seconds DAP: 2.47 mgy FINDINGS: Spot intraoperative C arm radiographs demonstrating ORIF of the tibia. IMPRESSION: Please refer to surgical report for detailed findings.
--- NOTE | 2024-09-10 10:04 | DVH ---
C-ARM FLUOROSCOPY: PROCEDURE: ORIF right tibia FLUOROSCOPY TIME: 87.9 seconds DAP: 2.47 mgy FINDINGS: Spot intraoperative C arm radiographs demonstrating ORIF of the tibia. IMPRESSION: Please refer to surgical report for detailed findings.
[2024-09-10 10:56] VITALS: BP 130/67; PULSE 82; RESP 13; O2SAT 97
[2024-09-10] MEDS: METOCLOPRAMIDE HCL 5MG/ml INJ 2ml VIAL IV ONE (11:04)
== END 2024-09-10 11:50 | disposition home or self-care (01) ==
LOC: SUR 05:55
PROVIDERS: ATTEND Orthopaedic Surgery
DX: S82.191A Other fracture of upper end of right tibia, initial encounter for closed fracture (principal); S82.831A Other fracture of upper and lower end of right fibula, initial encounter for closed fracture; S82.143A Displaced bicondylar fracture of unspecified tibia, initial encounter for closed fracture; X58.XXXA Exposure to other specified factors, initial encounter; Y93.89 Activity, other specified; Y92.89 Other specified places as the place of occurrence of the external cause; Y99.8 Other external cause status; I10 Essential (primary) hypertension; E11.40 Type 2 diabetes mellitus with diabetic neuropathy, unspecified; E78.5 Hyperlipidemia, unspecified; J44.9 Chronic obstructive pulmonary disease, unspecified; G89.29 Other chronic pain; E66.01 Morbid (severe) obesity due to excess calories; Z68.41 Body mass index [BMI] 40.0-44.9, adult; Z79.899 Other long term (current) drug therapy; Z98.890 Other specified postprocedural states; Z88.1 Allergy status to other antibiotic agents
CPT/HCPCS: 27535; 36415; 80053; 81001; 82962; 85025; 85610; 85730; C1713; J0330; J1100; J1171; J1885; J2175; J2250; J2405; J2704; J2765; J2795; J3010; 73590; 76000